=== PATIENT | female | born 1945 | race Caucasian/White ===

== ENCOUNTER 2020-06-23 08:02 | Outpatient (REF) | payer MEDICARE, SELFPAY ==
[2020-06-23 11:07] LABS: Hematocrit 38.1 % (37-47); Hemoglobin 12.4 g/dl (12.0-16.0); Mean Corpuscular HGB Conc 32.5 g/dl (31.0-35.0); Mean Corpuscular Hemoglobin 28.8 pg (27.0-33.0); Mean Corpuscular Volume 88.6 fL (80-98); Mean Platelet Volume 9.3 fL (9.4-12.3); Platelet Count 191 X10*3/uL (160-400); Red Cell Distribution Width 13.7 % (11.0-16.0); White Blood Count 6.6 X10*3/uL (4.8-10.8)
[2020-06-23 11:50] LABS: Vitamin D 25-OH Total 17.6 ng/mL (>30)
[2020-06-23 11:54] LABS: Alanine Aminotransferase 22 U/L (0-31); Albumin Level 4.2 g/dL (3.5-5.0); Alkaline Phosphatase 82 U/L (39-117); Anion Gap 10 (12-20); Aspartate Amino Transferase 16 U/L (5-31); Bilirubin Total 1.1 mg/dL (0.0-1.0); Blood Urea Nitrogen 14 mg/dL (9-16); Carbon Dioxide 29 mmol/L (22-29); Chloride 106 mmol/L (96-108); Cholesterol 221 mg/dL; Estimated Glomerular Filt Rate > 60; Glucose Fasting 94 mg/dL (60-99); HDL Cholesterol 93 mg/dL; LDL Cholesterol Calculated 114 mg/dl; Sodium 141 mmol/L (135-145); Triglycerides 74 mg/dL
== END 2020-06-23 08:03 | disposition home or self-care (01) ==
LOC: HO.HMGCLDS 08:02
PROVIDERS: PCP Internal Medicine; Visit Provider Internal Medicine
DX: I10 Essential (primary) hypertension (principal); E78.2 Mixed hyperlipidemia; K58.9 Irritable bowel syndrome, unspecified
CPT/HCPCS: 36415; 80053; 80061; 82306; 85027

== ENCOUNTER 2020-09-27 07:42 | Day surgery (SDC) | payer MEDICARE, SELFPAY ==
[2020-09-21 13:46] VITALS: BMI 27.2
--- NOTE | 2020-09-26 08:41 | P.CONAN_ITS ---
Documented by User: Krystal Suggs 09/26/20 08:42 HPI - Anesthesia Eval Consult details Narrative: 75yo F for Colonoscopy PMFSH Active Problems Active Problems: All Active Problems (Updated 09/21/20 @ 12:09 by Elizabeth Denson) Hypertension (Acute) Hyperlipidemia (Acute) Medial meniscus tear (Acute) Anxiety (Acute) Past Medical History Medical History Anxiety History of mammogram HTN (hypertension) Hyperlipidemia IBS (irritable bowel syndrome) Medial meniscus tear Osteoarthritis Osteopenia PMR (polymyalgia rheumatica) Family History Family History Father Cancer of prostate Mother CAD (coronary artery disease) CHF (congestive heart failure) Hx of CABG Surgical History Surgical History H/O colonoscopy History of carpal tunnel release Hx of cholecystectomy Hx of hysterectomy S/P lumbar spinal fusion Social History Social History Alcohol intake: current Alcohol intake frequency: holidays/special occasions only Smoking Status: Unknown if ever smoked Advance Directives Information Provided: No Meds Allergies Allergy/AdvReac Type Severity Reaction Status Date / Time atorvastatin [Lipitor] Allergy Intermediate myalgia Verified 09/27/20 07:49 celecoxib [From CELEBREX] Allergy Intermediate ITCHING, Verified 09/27/20 07:49 RASH rosuvastatin [Crestor] Allergy Intermediate myalagia Verified 09/27/20 07:49 codeine [Codeine] Allergy Mild ITCHING, Verified 09/27/20 07:49 itchy morphine [Morphine] Allergy Mild ITCHING, Verified 09/27/20 07:49 itchy meperidine [Demerol] Allergy Unknown unknown Verified 09/27/20 07:49 Home Medications Medication Instructions Recorded Confirmed Last Taken Type aspirin 81 mg tablet,delayed 81 mg PO DAILY 04/25/20 09/21/20 Unknown History release coenzyme Q10 200 mg capsule 200 mg PO DAILY 04/25/20 09/21/20 Unknown History furosemide 20 mg tablet 20 mg PO DAILY 04/25/20 09/21/20 Unknown History lactobacillus combination no.8 1 cap PO DAILY 04/25/20 09/21/20 Unknown History melatonin 10 mg capsule 20 mg PO DAILY 04/25/20 09/21/20 Unknown History rosuvastatin 5 mg tablet 5 mg PO DAILY 04/25/20 09/21/20 Unknown History flu vacc (65yr ml IM 06/10/20 06/30/20 Unknown History up)-MF59C(PF) 60 mcg(15 mcgx4)/0.5 mL IM syringe Exam Exam Date and Time: September 26, 2020 0841 Height,Weight and Vital Signs: Height 5 ft 5.25 in Weight 74.843 kg Narrative Narrative: EKG 04/2020 [address]R [address] and T wave abn No change from 2007 Assessment and Plan Assessment Anesthesia Assessment: Chart Reviewed Documented by User: Angelic Jimenez 09/27/20 08:40 [facility] Past Medical History Medical History Anxiety History of mammogram HTN (hypertension) Hyperlipidemia IBS (irritable bowel syndrome) Medial meniscus tear Osteoarthritis Osteopenia PMR (polymyalgia rheumatica) Family History Family History Father Cancer of prostate Mother CAD (coronary artery disease) CHF (congestive heart failure) Hx of CABG Family history of problems with anesthesia: No Surgical History Surgical History H/O colonoscopy History of carpal tunnel release Hx of cholecystectomy Hx of hysterectomy S/P lumbar spinal fusion History of Problems with Anesthesia: No Social History Social History Alcohol intake: current Alcohol intake frequency: holidays/special occasions only Smoking Status: Unknown if ever smoked Advance Directives Information Provided: No Meds Allergies Allergy/AdvReac Type Severity Reaction Status Date / Time atorvastatin [Lipitor] Allergy Intermediate myalgia Verified 09/27/20 07:49 celecoxib [From CELEBREX] Allergy Intermediate ITCHING, Verified 09/27/20 07:49 RASH rosuvastatin [Crestor] Allergy Intermediate myalagia Verified 09/27/20 07:49 codeine [Codeine] Allergy Mild ITCHING, Verified 09/27/20 07:49 itchy morphine [Morphine] Allergy Mild ITCHING, Verified 09/27/20 07:49 itchy meperidine [Demerol] Allergy Unknown unknown Verified 09/27/20 07:49 Home Medications Medication Instructions Recorded Confirmed Last Taken Type aspirin 81 mg tablet,delayed 81 mg PO DAILY 04/25/20 09/21/20 Unknown History release coenzyme Q10 200 mg capsule 200 mg PO DAILY 04/25/20 09/21/20 Unknown History furosemide 20 mg tablet 20 mg PO DAILY 04/25/20 09/21/20 Unknown History lactobacillus combination no.8 1 cap PO DAILY 04/25/20 09/21/20 Unknown History melatonin 10 mg capsule 20 mg PO DAILY 04/25/20 09/21/20 Unknown History rosuvastatin 5 mg tablet 5 mg PO DAILY 04/25/20 09/21/20 Unknown History flu vacc (65yr ml IM 06/10/20 06/30/20 Unknown History up)-MF59C(PF) 60 mcg(15 mcgx4)/0.5 mL IM syringe Exam Height,Weight and Vital Signs: Vital Signs Temp Pulse Resp BP Pulse Ox 09/27/20 07:54 97.8 F 72 16 146/73 H 96 Airway Mallampati Class: II TM Dist: >3cm Neck ROM: Full Heart: RRR Lungs: CTAB Assessment and Plan Assessment Anesthesia Assessment: Anesthesia Plan Discussed and Chart Reviewed Final Anesthetic Review NPO: Yes ASA Class: II Final Preanesthetic Review: No Changes in Pt Med Stat, Meds/Allgs Chart Reviewed, Consent Obtained/Reviewed and Anes Risks/Benef Reviewed Patient Risk: Low Procedure Risk: Low Assessment/Block/Sedation in SS: Assess/Block/Sedation-SS Anesthetic Plan Anesthetic Plan: MAC: Disposition: Standard PACU
[2020-09-27 07:54] VITALS: BP 146/73; PULSE 72; RESP 16; TEMP 36.6; O2SAT 96
[2020-09-27] MEDS: Lactated Ringers 1,000 ML 100 ML IVCONT (08:12)
--- NOTE | 2020-09-27 08:31 | MHC.SHP ---
Pre-Procedural Eval Section B Chief Complaint: screening Details of Present Illness: see h&p no changes Relevant Family History (Specify if Yes): No Relevant Social History: None Present Medications: see Short Stay Collaborative assessment Medical History: No relevant PMH History of Previous Operations: No relevant previous surgery Allergies: Allergies Allergy/AdvReac Type Severity Reaction Status Date / Time atorvastatin [Lipitor] Allergy Intermediate myalgia Verified 09/27/20 07:49 celecoxib [From CELEBREX] Allergy Intermediate ITCHING, Verified 09/27/20 07:49 RASH rosuvastatin [Crestor] Allergy Intermediate myalagia Verified 09/27/20 07:49 codeine [Codeine] Allergy Mild ITCHING, Verified 09/27/20 07:49 itchy morphine [Morphine] Allergy Mild ITCHING, Verified 09/27/20 07:49 itchy meperidine [Demerol] Allergy Unknown unknown Verified 09/27/20 07:49 Review of Systems Sugical H&P ROS: Negative: Constitution, Cardiovascular, Respiratory, Neurological, Psychiatric, Hem-Onc, Allergic/Immunologic, Gastrointestinal, Genitourinary, Musculoskeletal, Integumentary, Endocrine and Eyes/Ears/Nose/Throat Exam Surgical H&P Exam: Normal: HEENT, Normal: Heart, Normal: Lungs, Normal: Extremities, Normal: Abdomen, Normal: Skin and Normal: Neurological Plan Diagnosis/Plan: Unchanged I have reviewed the history and physical and performed a pertinent physical examination on my patient. No changes have occurred unless specified.
--- NOTE | 2020-09-27 08:53 | PM.OP ---
Brief Operative Note Date of Service: 09/27/20 Pre-op diagnosis: screening Post-op diagnosis: same (colon polyp) Procedure: colonoscopy Surgeon: Jose Gallagher Anesthesia: MAC Was an [employer] used for this Procedure?: No Estimated blood loss (mL): 0 Pathology: other (polyp x1) Condition: stable Disposition: PACU
[2020-09-27 08:57] VITALS: BP 112/58; PULSE 67; RESP 14; TEMP 36.9; O2SAT 96
--- NOTE | 2020-09-27 19:49 | OP_ITS ---
SURGEON: Jose Gallagher MD INDICATIONS: Colon cancer screening. PREOPERATIVE DIAGNOSIS: POSTOPERATIVE DIAGNOSIS: PROCEDURE PERFORMED: Colonoscopy to the terminal ileum with snare polypectomy. ESTIMATED BLOOD LOSS: COMPLICATIONS: ANESTHESIA: ASSISTANTS: SPECIMENS: MEDICATIONS: Monitored anesthesia care. PROCEDURE DESCRIPTION: History and physical performed. The risks and benefits of the procedure were explained to the patient, and informed consent was obtained. The patient was placed in the left lateral decubitus position. A digital rectal exam was performed and was found to be normal. The Olympus pediatric video colonoscope was introduced into the rectum and advanced to the cecum without difficulty. The cecum was identified by transillumination, palpation, and identification of ileocecal valve. Examination was performed, and the scope was removed. She tolerated the procedure well and was returned to recovery area in stable condition. FINDINGS: The terminal ileum was examined and appeared normal. The visualized colonic mucosa was normal. The quality of prep was good with some residual stool in the sigmoid. This was washed and suctioned. No mass lesions were seen. There was a single 6 mm polyp at 50 cm that was removed with a snare and recovered via suction. No other polyps were identified. There was mild sigmoid diverticulosis with scattered diverticulosis in the remainder of the colon. Retroflexed examination was normal. IMPRESSION: Colon polyp. RECOMMENDATION: Follow up the biopsy results. MD FAM Wong/MODL / [id number]
== END 2020-09-27 09:37 | disposition home or self-care (01) ==
PROVIDERS: PCP Internal Medicine; Visit Provider Internal Medicine Gastroenterology
PROC: 0DJD8ZZ Inspection of Lower Intestinal Tract, Via Natural or Artificial Opening Endoscopic (ICD-10-PCS; CPT 45378; principal; 2020-09-27 08:50)
DX: Z12.11 Encounter for screening for malignant neoplasm of colon (principal); K63.5 Polyp of colon; K57.30 Diverticulosis of large intestine without perforation or abscess without bleeding; K58.0 Irritable bowel syndrome with diarrhea; I10 Essential (primary) hypertension; M35.3 Polymyalgia rheumatica; Z90.49 Acquired absence of other specified parts of digestive tract; Z79.899 Other long term (current) drug therapy; Z79.82 Long term (current) use of aspirin; Z88.8 Allergy status to other drugs, medicaments and biological substances
CPT/HCPCS: 45385; 88305

== ENCOUNTER 2020-11-16 11:55 | Outpatient (REF) | payer MEDICARE, SELFPAY ==
[2020-11-16 13:15] LABS: Hematocrit 38.6 % (37-47); Hemoglobin 12.4 g/dl (12.0-16.0); Mean Corpuscular HGB Conc 32.1 g/dl (31.0-35.0); Mean Corpuscular Hemoglobin 28.6 pg (27.0-33.0); Mean Corpuscular Volume 89.1 fL (80-98); Mean Platelet Volume 9.3 fL (9.4-12.3); Platelet Count 203 X10*3/uL (160-400); Red Blood Count 4.33 X10*6/uL (4.20-5.50); Red Cell Distribution Width 13.2 % (11.0-16.0); White Blood Count 6.9 X10*3/uL (4.8-10.8)
[2020-11-16 13:40] LABS: Alanine Aminotransferase 17 U/L (0-31); Albumin Level 4.3 g/dL (3.5-5.0); Alkaline Phosphatase 84 U/L (39-117); Aspartate Amino Transferase 16 U/L (5-31); Bilirubin Direct 0.4 mg/dL (0.0-0.5); Bilirubin Total 1.1 mg/dL (0.0-1.0); Blood Urea Nitrogen 11 mg/dL (9-16); Estimated Glomerular Filt Rate > 60; Lipase 25 U/L (8-78); Total Protein 6.5 g/dL (6.5-8.0)
== END 2020-11-16 11:56 | disposition home or self-care (01) ==
LOC: HO.LAB 11:55
PROVIDERS: PCP Internal Medicine; Visit Provider Internal Medicine Gastroenterology
DX: R10.13 Epigastric pain (principal)
CPT/HCPCS: 36415; 80076; 82565; 83690; 84520; 85027

== ENCOUNTER 2020-11-22 09:21 | Outpatient (REF) | payer MEDICARE, SELFPAY ==
--- NOTE | ~2020-11-22 | CT_ITS ---
EXAMINATION: CT ABDOMEN AND PELVIS WITH CONTRAST CLINICAL INFORMATION: Epigastric pain COMPARISON: Previous CT of the abdomen and pelvis most recent March 2015 TECHNIQUE: Multidetector volumetric images were obtained from the superior aspect of the liver through the pubic symphysis following administration 85 mL of Omnipaque 350 intravenous contrast. Sagittal and coronal reformatted images were obtained on the technologist's workstation. Oral contrast: Yes This CT examination was performed using dose optimization techniques as appropriate, variously including the following: *Automated exposure control *Adjustment of mA and/or kV according to patient size (this includes techniques or standardized protocols for targeted exams where dose is matched to indication/reason for exam; i.e. extremities or head) *Use of iterative reconstruction technique DLP: 398 mGy-cm FINDINGS: LUNG BASES: The visualized lung bases are unremarkable. LIVER, GALLBLADDER, AND BILIARY TREE: The liver is slightly low in attenuation just above mild fatty lesions. There is a 6 x 10 mm low-attenuation lesion in the inferior right lobe axial image 24 series 3 that is stable. No biliary ductal dilatation is present. The gallbladder has been removed. PANCREAS: Unremarkable. SPLEEN: Unremarkable. ADRENAL GLANDS: Unremarkable. KIDNEYS AND URETERS: There are bilateral renal cysts. Kidneys are otherwise unremarkable. BLADDER: Unremarkable. GASTROINTESTINAL TRACT: There is diverticulosis of the colon. No evidence of diverticulitis is seen. The small and large bowel are otherwise unremarkable. The appendix is unremarkable. ABDOMINAL WALL: No significant hernia is appreciated. LYMPH NODES: Normal. VASCULAR: Unremarkable. PELVIC VISCERA: The uterus is been removed. No pelvic mass is seen. OSSEOUS STRUCTURES: There is posterior fusion hardware with rods and reticular screws at L4-L5 and S1. There is mild 4 mm retrolisthesis of L2 with respect to L3. There is mild curvature of the lower lumbar sacral spine to the right. There is multilevel degenerative disc disease. CT/CT abdomen pelvis w con IMPRESSION: Diverticulosis. No evidence of diverticulitis. Bilateral renal cysts. Mild fatty infiltration of the liver and stable small liver lesion.
[2020-11-22] MEDS: iohexoL 350 MG/ML 100 ML INFUS..BTL IV (10:30)
== END 2020-11-22 09:22 | disposition home or self-care (01) ==
LOC: HO.CT 09:21
PROVIDERS: Visit Provider Internal Medicine Gastroenterology
DX: R10.13 Epigastric pain (principal)
CPT/HCPCS: 74177; Q9967

== ENCOUNTER 2021-02-21 08:09 | Outpatient (REF) | payer MEDICARE, SELFPAY ==
[2021-02-21 12:18] LABS: Alanine Aminotransferase 26 U/L (0-31); Albumin Level 4.3 g/dL (3.5-5.0); Alkaline Phosphatase 88 U/L (39-117); Anion Gap 12 (12-20); Aspartate Amino Transferase 21 U/L (5-31); Bilirubin Total 0.9 mg/dL (0.0-1.0); Blood Urea Nitrogen 20 mg/dL (9-16); Calcium 9.8 mg/dL (8.4-10.2); Carbon Dioxide 25 mmol/L (22-29); Chloride 107 mmol/L (96-108); Cholesterol 240 mg/dL; Estimated Glomerular Filt Rate > 60; Glucose Fasting 117 mg/dL (60-99); HDL Cholesterol 84 mg/dL; LDL Cholesterol Calculated 118 mg/dl; Potassium 4.4 mmol/L (3.3-5.1); Sodium 140 mmol/L (135-145); Total Protein 6.4 g/dL (6.5-8.0); Triglycerides 190 mg/dL
== END 2021-02-21 08:10 | disposition home or self-care (01) ==
LOC: HO.HMGCLDS 08:09
PROVIDERS: PCP Internal Medicine; Visit Provider Internal Medicine
DX: E78.5 Hyperlipidemia, unspecified (principal); F41.9 Anxiety disorder, unspecified; I10 Essential (primary) hypertension
CPT/HCPCS: 36415; 80053; 80061; 82306

== ENCOUNTER 2021-04-07 10:19 | Outpatient (REF) | payer MEDICARE, SELFPAY ==
--- NOTE | ~2021-04-07 | MM_ITS ---
EXAMINATION: BONE DENSITOMETRY CLINICAL INDICATION: Asymptomatic menopausal state. COMPARISON: This is the patient's baseline examination. TECHNIQUE: Using a First [employer] DXA System (software version: 13.1) manufactured by [employer], dual-energy x-ray absorptiometry was performed of the left hip and left forearm radius 33%. The images are of good technical quality. Summary results are attached. FINDINGS: LEFT FEMUR, NECK: BMD 0.818 g/cm2, Z-score 0.1, T-score -1.6, osteopenia. LEFT FEMUR, TOTAL: BMD 0.845 g/cm2, Z-score 0.2, T-score -1.3, osteopenia. LEFT FOREARM RADIUS 33%: BMD 0.805 g/cm2, Z-score 1.4, T-score -0.8, normal. IDENTIFIED RISK FACTORS: Height loss, anticonvulsants, glucocorticoids (chronic), thiazide, menopause, bilateral oophorectomy. HISTORY OF FRACTURE: Hand. MEDICATIONS: None listed. MM/XR DEXA axial skeleton IMPRESSION: 1. DIAGNOSIS: Osteopenia based on the lowest T-score value of -1.6 in the femoral neck applying World Health Organization criteria. 2. 10-YEAR FRACTURE RISK PREDICTION, FRAX: Major osteoporotic fracture (clinical spine, forearm, hip or shoulder) 17.7%. Hip fracture 4.2%. 3. Treatment Recommendations: NOF guidelines recommend consideration for treatment in postmenopausal women and men age 50 and older presenting with the following: -A hip or vertebral (clinical or morphometric) fracture. -T-score less than or equal to -2.5 at the femoral neck or spine after appropriate evaluation to exclude secondary causes. -Low bone mass at the hip or spine and a 10-year fracture probability by FRAX of greater than or equal to 3% for hip fracture or greater than or equal to 20% for major osteoporotic fracture based on the [place] adapted WHO algorithm. 4. Other Recommendations: All treatment decisions require clinical judgment and consideration of individual patient factors, including patient preferences, comorbidities, previous drug use, risk factors not captured in the FRAX model (e.g. frailty, falls, vitamin D deficiency, increased bone turnover, interval significant decline in bone density) and possible under or overestimation of fracture risk by FRAX. Additional medical evaluation for secondary cause of low bone mineral density may be appropriate. FUTURE SCAN RECOMMENDATION: People with diagnosed cases of osteoporosis or at high risk for fracture should have regular bone mineral density tests. For patients eligible for Medicare, routine testing is allowed once every 2 years. The testing frequency can be increased to one year for patients who have rapidly progressing disease, those who are receiving or discontinuing medical therapy to restore bone mass, or have additional risk factors.
== END 2021-04-07 10:20 | disposition home or self-care (01) ==
LOC: HO.MAMMO 10:19
PROVIDERS: Visit Provider Internal Medicine
DX: Z13.820 Encounter for screening for osteoporosis (principal); Z78.0 Asymptomatic menopausal state
CPT/HCPCS: 77080; 77081

== ENCOUNTER 2021-07-04 16:34 | Outpatient (REF) | payer MEDICARE, SELFPAY | END 2021-07-04 16:35 | disposition home or self-care (01) | LOC: HO.LNP 16:34 | PROVIDERS: Visit Provider Internal Medicine | DX: R21 Rash and other nonspecific skin eruption (principal) | CPT/HCPCS: 87255 ==

== ENCOUNTER 2021-08-23 08:13 | Outpatient (REF) | payer MEDICARE, SELFPAY ==
[2021-08-23 11:23] LABS: MANUAL DIFF FLAG NO
[2021-08-23 11:32] LABS: Basophils Percent Auto 0.7 % (0-2); Eosinophils Absolute Auto 0.3 X10*3/uL (0.0-0.4); Eosinophils Percent Auto 4.5 % (0-4); Hematocrit 38.4 % (37.0-47.0); Hemoglobin 12.1 g/dl (12.0-16.0); Imm Gran Abs Auto 0.02 X10*3/uL (0.00-0.03); Imm Gran Pct Auto 0.4 % (0.0-0.4); Lymphocytes Absolute Auto 2.4 X10*3/uL (1.2-4.9); Lymphocytes Percent Auto 42.5 % (20-40); Mean Corpuscular HGB Conc 31.5 g/dl (31.0-35.0); Mean Corpuscular Hemoglobin 28.3 pg (27.0-33.0); Mean Corpuscular Volume 89.9 fL (80.0-98.0); Mean Platelet Volume 9.5 fL (9.4-12.3); Monocytes Absolute Auto 0.4 X10*3/uL (0.1-1.2); Monocytes Percent Auto 7.7 % (2-11); Neutrophils Absolute Auto 2.5 x10*3/uL (2.0-8.3); Neutrophils Percent Auto 44.2 % (45-73); Platelet Count 238 X10*3/uL (160-400); Red Blood Count 4.27 X10*6/uL (4.20-5.50); Red Cell Distribution Width 13.7 % (11.0-16.0); White Blood Count 5.6 X10*3/uL (4.8-10.8)
[2021-08-23 11:53] LABS: Estimated Average Glucose 103 mg/dL; Hemoglobin A1c % 5.2 %
[2021-08-23 12:04] LABS: TSH reflex Free T4 1.63 uIU/mL (0.32-4.0)
[2021-08-23 12:05] LABS: Alanine Aminotransferase 24 U/L (0-31); Albumin Level 4.3 g/dL (3.5-5.0); Alkaline Phosphatase 98 U/L (39-117); Anion Gap 10 (12-20); Aspartate Amino Transferase 17 U/L (5-31); Bilirubin Total 1.3 mg/dL (0.0-1.0); Blood Urea Nitrogen 13 mg/dL (9-16); Calcium 9.9 mg/dL (8.4-10.2); Carbon Dioxide 29 mmol/L (22-29); Chloride 105 mmol/L (96-108); Cholesterol 234 mg/dL; Estimated Glomerular Filt Rate > 60; Glucose Fasting 105 mg/dL (60-99); HDL Cholesterol 90 mg/dL; LDL Cholesterol Calculated 100 mg/dl; Potassium 3.8 mmol/L (3.3-5.1); Sodium 140 mmol/L (135-145); Total Protein 6.6 g/dL (6.5-8.0); Triglycerides 223 mg/dL
== END 2021-08-23 08:14 | disposition home or self-care (01) ==
LOC: HO.HMGCLDS 08:13
PROVIDERS: PCP Internal Medicine; Visit Provider Internal Medicine
DX: Z00.00 Encounter for general adult medical examination without abnormal findings (principal); E78.5 Hyperlipidemia, unspecified; I10 Essential (primary) hypertension
CPT/HCPCS: 36415; 80053; 80061; 83036; 84443; 85025

== ENCOUNTER 2022-03-07 07:26 | Emergency (ER) | payer MEDICARE, SELFPAY ==
--- NOTE | ~2022-03-07 | MR_ITS ---
EXAMINATION: MR ABDOMEN WITHOUT CONTRAST/MRCP CLINICAL INFORMATION: Epigastric abdominal pain, nausea, vomiting, abnormal LFTs. Rule out stone. COMPARISON: Right upper quadrant ultrasound dated 2021. CT scan of the abdomen and pelvis dated 03/07/2022 and 09/16/2013. TECHNIQUE: An MRI scan of the abdomen was performed using multiple imaging sequences and imaging planes. As per the MRCP protocol, heavily T2-weighted 3-D high-resolution MRCP sequences were obtained in the coronal plane along with thin and thick slab coronal images and coronal MIP reconstructions the technologist workstation under concurrent physician supervision. FINDINGS: LIVER: The liver is normal in size and signal. No hepatic steatosis is seen. There is a 0.9 cm circumscribed T2 bright mass along the inferior periphery of hepatic segment 6, incompletely characterize given the lack of intravenous contrast, but unchanged dating back to prior CT scan of the abdomen from 09/16/2013, consistent with a benign cyst. No further imaging follow-up is recommended. GALLBLADDER/BILIARY TREE: The gallbladder is. Mild intra-hepatic ductal dilatation is seen. Common bile duct is dilated, measuring 0.9 cm proximally and 1 cm distally. The degree of extrahepatic biliary dilatation is progressive compared to 09/16/2013, where largest diameter of 0.7 cm was seen. Findings may be related to progressive extrahepatic biliary dilatation status post cholecystectomy and age. No obstructing stone or mass is seen. PANCREAS: The pancreas is normal in appearance. Anatomic variant of pancreas divisum is seen with persistent duct of Santorini noted draining through the accessory papilla. No ductal dilatation, mass or surrounding stranding is seen. SPLEEN: Normal size and appearance. ADRENAL GLANDS AND KIDNEYS: Adrenal glands normal. Kidneys bilaterally symmetric in size. Several bilateral thin-walled T2 bright renal masses are seen, consistent with cysts, largest of which is an exophytic lower pole right renal 6.7 cm cyst. No specific imaging follow-up is recommended for renal cysts. No suspicious focal mass, hydronephrosis, or perinephric stranding. BOWEL LOOPS: Scattered colonic diverticulosis is seen with no evidence of acute diverticulitis. Small bowel loops are decompressed and grossly unremarkable. LYMPHOVASCULAR STRUCTURES: Abdominal aorta normal in caliber. No periaortic collections. No abdominal adenopathy or free fluid collection. BONES: S-shaped thoracolumbar scoliosis and multilevel degenerative disc disease is noted. There is evidence of posterior spinal decompression and fusion at the L4-S1 levels with associated prominent dephasing artifact, limiting assessment. MR/MR MRCP IMPRESSION: 1. Mild intra-hepatic and extrahepatic biliary ductal dilatation is seen, progressive compared to 09/16/2013. Findings may be related to progressive extrahepatic biliary dilatation status post cholecystectomy and age. No obstructing stone or mass is seen. 2. Anatomic variant of pancreas divisum. 3. Bilateral benign-appearing renal cysts. No specific imaging follow-up is recommended. 4. Colonic diverticulosis.
--- NOTE | ~2022-03-07 | US_ITS ---
EXAMINATION: US ABDOMEN LIMITED CLINICAL INFORMATION: Right upper quadrant and epigastric pain with nausea. COMPARISON: CT scan of the abdomen and pelvis performed today. TECHNIQUE: Real-time imaging of the right upper quadrant abdominal viscera. FINDINGS: PANCREAS: Visualized portions unremarkable. LIVER: Homogeneous echotexture. Tiny anechoic cyst in the right lobe measures 1.1 cm. GALLBLADDER: Status post cholecystectomy. COMMON BILE DUCT: 0.9 cm proximally and 0.7 cm distally without intraluminal abnormality. RIGHT KIDNEY: 10.7 cm. Anechoic interpolar cyst measures 7.4 cm. No hydronephrosis or nephrolithiasis. FREE FLUID: None. US/US abdomen limited IMPRESSION: 1. No acute abnormality. 2. Right renal cyst demonstrating benign features correlating with CT findings, not requiring follow-up.
--- NOTE | ~2022-03-07 | CT_ITS ---
EXAMINATION: CT ABDOMEN AND PELVIS WITH CONTRAST CLINICAL INFORMATION: Epigastric/periumbilical abdominal pain. Nausea. COMPARISON: 11/22/2020 TECHNIQUE: Multidetector volumetric images were obtained from the superior aspect of the liver through the pubic symphysis following administration 85 mL of Omnipaque 350 intravenous contrast. Sagittal and coronal reformatted images were obtained on the technologist's workstation. Oral contrast: No This CT examination was performed using dose optimization techniques as appropriate, variously including the following: *Automated exposure control *Adjustment of mA and/or kV according to patient size (this includes techniques or standardized protocols for targeted exams where dose is matched to indication/reason for exam; i.e. extremities or head) *Use of iterative reconstruction technique DLP: 520 mGy-cm FINDINGS: LUNG BASES: The visualized lung bases are unremarkable. LIVER, GALLBLADDER, AND BILIARY TREE: The liver is normal in size, shape, and attenuation. No focal hepatic lesion. Cholecystectomy. Mild intrahepatic and extrahepatic biliary ductal dilatation. No ductal filling defect. PANCREAS: Unremarkable. SPLEEN: Unremarkable. ADRENAL GLANDS: Unremarkable. KIDNEYS AND URETERS: The kidneys are normal in size, shape, and attenuation. No hydronephrosis, hydroureter, or calculi seen. No perinephric stranding. Simple appearing bilateral renal cysts. No specific follow-up recommended. BLADDER: Unremarkable. GASTROINTESTINAL TRACT: The stomach is unremarkable. Normal caliber small bowel. No obstruction. No colonic wall thickening or acute inflammation. Normal appendix. Colonic diverticulosis without evidence of diverticulitis. This is greatest throughout the left hemicolon. ABDOMINAL WALL: No significant abdominal wall hernia seen. LYMPH NODES: Normal. VASCULAR: Unremarkable. PELVIC VISCERA: Uterus is not seen. No adnexal mass. OSSEOUS STRUCTURES: Posterior fusion hardware from L4 through S1. Degenerative change throughout the spine. No acute or suspicious osseous abnormality. CT/CT abdomen pelvis w IV con IMPRESSION: 1. No acute findings in the abdomen or pelvis. No inflammatory changes. 2. There is mild intrahepatic and extrahepatic biliary ductal dilatation status post cholecystectomy. This is mildly increased from prior. No ductal filling defect seen. Fleischner guidelines were followed.
--- NOTE | 2022-03-07 07:28 | ECG_ITS ---
Test Reason : chest pain Blood Pressure : / mmHG Vent. Rate : 064 BPM Atrial Rate : 064 BPM P-R Int : 140 ms QRS Dur : 080 ms QT Int : 452 ms P-R-T Axes : 055 001 020 degrees QTc Int : 466 ms Normal sinus rhythm Nonspecific ST and T wave abnormality Abnormal ECG When compared with ECG of 14-JUL-2007 10:19, No significant changes seen Referred By: Generic ED Physician Electronically Signed By:HAFSA PRASAD MD
[2022-03-07 07:40] VITALS: BP 137/77; PULSE 65; RESP 16; TEMP 36.2; O2SAT 97; BMI 26.1
[2022-03-07 09:36] LABS: MANUAL DIFF FLAG NO
[2022-03-07 09:38] LABS: Basophils Percent Auto 0.4 % (0-2); Eosinophils Absolute Auto 0.1 X10*3/uL (0.0-0.4); Eosinophils Percent Auto 1.8 % (0-4); Hematocrit 38.4 % (37.0-47.0); Hemoglobin 12.9 g/dl (12.0-16.0); Imm Gran Abs Auto 0.03 X10*3/uL (0.00-0.03); Imm Gran Pct Auto 0.4 % (0.0-0.4); Lymphocytes Absolute Auto 1.6 X10*3/uL (1.2-4.9); Lymphocytes Percent Auto 20.7 % (20-40); Mean Corpuscular HGB Conc 33.6 g/dl (31.0-35.0); Mean Corpuscular Hemoglobin 30.6 pg (27.0-33.0); Mean Corpuscular Volume 91.2 fL (80.0-98.0); Monocytes Absolute Auto 0.5 X10*3/uL (0.1-1.2); Neutrophils Absolute Auto 5.4 x10*3/uL (2.0-8.3); Neutrophils Percent Auto 69.7 % (45-73); Platelet Count 219 X10*3/uL (160-400); Red Blood Count 4.21 X10*6/uL (4.20-5.50); Red Cell Distribution Width 13.9 % (11.0-16.0); White Blood Count 7.7 X10*3/uL (4.8-10.8)
[2022-03-07 09:39] LABS: Appearance Urine Clear; Color Urine Yellow; Glucose Urine UA Negative (Negative); Leukocyte Esterase Urine Negative (Negative); Nitrite Urine Negative (Negative); Urine Blood Negative (Negative); Urine Ketones Negative (Negative); Urine Protein Negative (Neg-Trace)
[2022-03-07] MEDS: 0.9 % Sodium Chloride 1,000 ML 999 ML IV (09:45)
[2022-03-07] MEDS: Magnesium Hydrox/Alum Hydrox 30 ML ORAL.SUSP PO (09:51)
[2022-03-07] MEDS: Famotidine/PF 20 MG/2 ML VIAL IVPUSH (09:51)
[2022-03-07] MEDS: ondansetron HCL 4 MG/2 ML VIAL IVPUSH (09:51)
--- OUTSIDE RECORDS SUMMARY | 2022-03-07 09:59 | XMS_ITS | Continuity of Care Document ---
:1945 Author Organization [facility] Address [address] [place] [id number]- Care Team Providers Name Role Phone Charu Santos MD Primary Care Physician Encounter [facility] [place](s): 06/19/21 - 06/20/[address] [id number] Discharge Disposition: A-Transfer VNA/Home Health Attending Physician: Hugh Michele MD Admitting Physician: Hugh Michele MD Referring Physician: Hugh Michele MD Allergies, Adverse Reactions, Alerts Substance Reaction Severity Status codeine itching Active morphine itching Active Demerol HCl itching Active CeleBREX rash Active Medications acetaminophen 325 mg oral tablet 650 mg, By Mouth, Every 6 hours, May take OTC not to exceed 3000 mg/day, Refills 0, Maintenance, 06/20/21 7:47:00 EST, Partial fill upon patient request if the prescription is for a schedule II opioid drug. Start Date: 06/20/21 Status: OrderedAcetaminophen Tablet 650 mg, Tablet, By Mouth, 06/20/21 14:00:00 EST Start Date: 06/20/21 Stop Date: 06/20/21 Status: CompletedamLODIPine 5 mg oral tablet 5 mg, 1, tablet, By Mouth, Daily, # 30 tablet, Refills 0, Maintenance, 04/14/21 11:14:00 EST, Partial fill upon patient request if the prescription is for a schedule II opioid drug. Start Date: 04/14/21 Status: OrderedAspirin Tablet 325 mg, By Mouth, 2 times a day, Refills 0, Maintenance, 06/20/21 7:47:00 EST, Partial fill upon patient request if the prescription is for a schedule II opioid drug. Start Date: 06/20/21 Status: Orderedcitalopram 10 mg oral tablet 10 mg, 1, tablet, By Mouth, Daily, # 30 tablet, Refills 0, Maintenance, 04/14/21 11:14:00 EST, Partial fill upon patient request if the prescription is for a schedule II opioid drug. Start Date: 04/14/21 Status: OrderedColace Capsule 100 mg, 1, capsule, By Mouth, 2 times a day, Refills 0, Maintenance, 06/20/21 7:47:00 EST, Partial fill upon patient request if the prescription is for a schedule II opioid drug. Start Date: 06/20/21 Status: OrderedCrestor 5 mg oral tablet 1 tablet = 5 mg, By Mouth, Daily, # 30 tablet, 0 Refills, Maintenance, 04/14/21 11:14:00 EST, Tablet, Partial fill upon patient request if the prescription is for a schedule II opioid drug. Start Date: 04/14/21 Status: OrderedDilaudid Tablet 4 mg, Tablet, By Mouth, Every 4 hours, PRN for Pain , Severe, Routine, 06/19/21 13:23:00 EST Start Date: 06/19/21 Stop Date: 06/26/21 Status: Orderedesomeprazole 40 mg oral enteric coated capsule 1 capsule = 40 mg, By Mouth, Daily, # 30 capsule, 0 Refills, Maintenance, 04/14/21 11:15:00 EST, EC Capsule, Partial fill upon patient request if the prescription is for a schedule II opioid drug. Start Date: 04/14/21 Status: Orderedfurosemide 20 mg oral tablet 1, capsule, By Mouth, Daily, # 1 tablet, Refills 0, Maintenance, 04/14/21 11:14:00 EST, Partial fillupon patient request if the prescription is for a schedule II opioid drug. Start Date: 04/14/21 Status: Orderedgabapentin 600 mg oral tablet 1 tablet = 600 mg, By Mouth, Daily, # 270 tablet, 0 Refills, Maintenance, 04/14/21 11:13:00 EST, Tablet, Partial fill upon patient request if the prescription is for a schedule II opioid drug. Start Date: 04/14/21 Status: OrderedHYDROmorphone 2 mg oral tablet See Instructions, PRN Pain , Severe, Take 1-2 tablets By Mouth Every 4 hours, # 84 tablet, 0 Refills, Acute 06/27/21 7:42:00 EST, 06/20/21 7:42:00 EST, Tablet, [facility], Partial fill upon patient request if the prescription is for a sc... Start Date: 06/20/21 Stop Date: 06/27/21 Status: Orderedmelatonin 5 mg oral tablet 1 tablet = 5 mg, By Mouth, Daily at bedtime, Start 1 tablet by mouth at bedtime, increase weekly as needed to 3 tablet by mouth at bedtime, 0 Refills, Maintenance, 04/14/21 11:14:00 EST, Partial fill upon patient request if the prescription is for a s... Start Date: 04/14/21 Status: Orderedmeloxicam 15 mg oral tablet 1 tablet = 15 mg, By Mouth, Daily, # 30 tablet, 0 Refills, Maintenance, 06/20/21 7:48:00 EST, Tablet, Partial fill upon patient request if the prescription is for a schedule II opioid drug. Start Date: 06/20/21 Status: OrderedMiraLax Powder 1 pack/packet = 17 Gm, By Mouth, Daily, PRN Constipation, 0 Refills, Maintenance, 06/20/21 7:47:00 EST, Powder, Partial fill upon patient request if the prescription is for a schedule II opioid drug. Start Date: 06/20/21 Status: Orderedsenna 187 mg oral tablet 1 tablet = 8.6 mg, By Mouth, Daily at bedtime, PRN as needed for constipation, 0 Refills, Maintenance, 06/20/21 7:47:00 EST, Tablet, Partial fill upon patient request if the prescription is for a schedule II opioid drug. Start Date: 06/20/21 Status: OrderedtraMADol 50 mg oral tablet 1 tablet = 50 mg, By Mouth, Every 4 hours, PRN Pain , Mild, for 7 days, not to exceed 400 mg/day, # 42 tablet, 0 Refills, Acute 06/27/21 7:41:00 EST, 06/20/21 7:41:00 EST, Tablet, [facility], Partial fill upon patient request if the pres... Start Date: 06/20/21 Stop Date: 06/27/21 Status: Orderedvalsartan 160 mg oral tablet 160 mg, 1, tablet, By Mouth, Daily, # 30 tablet, Refills 0, Maintenance, 04/14/21 11:13:00 EST, Partial fill upon patient request if the prescription is for a schedule II opioid drug. Start Date: 04/14/21 Status: Ordered Results Radiology Reports Exam Date Time Procedure Performing Provider Status 06/19/21 10:36 PM Knee 1 or 2 Views Left Mary Boston; Auth (V erified) Notes:(Knee 1 or 2 Views Left) Reason For Exam: Postop;PostopRESULT: Knee 1 or 2 Views Left PROCEDURE: Knee 1 or 2 Views Left CLINICAL INDICATION: 76 years old Female, status post total LEFT knee joint replacement. TECHNIQUE: Portable AP view of the LEFT knee obtained. COMPARISONS: LEFT knee MRI December 18, 2018. FINDINGS: Bones and joints: Metallic cemented femoral and tibial components are noted, in good alignment. Lucent patellar component not well seen without a lateral view. Soft Tissues: As expected, there is subcutaneous gas and joint space gas at the knee. IMPRESSION: 1. Status post total knee joint replacement in good alignment on single AP view. Expected postoperative changes. Thank you for allowing me to participate in the care of this patient. WSN: [id number] Ordering Physician: Seun Bucio Dictated By: Ty Ford MD Dictated Date/Time: 06/20/21 0:14 am Reviewed By: Ty Ford MD Signed By: Ty Ford MD Signed Date/Time: 06/20/21 0:14 am Transcribed By: DELANEY Transcribed Date/Time: 06/20/21 0:13 am Vital Signs Most recent to oldest 1 2 3 [Reference Range]: Height 165 cm 165 cm 165 cm (06/20/21 6:56 AM) (06/19/21 3:17 PM) (06/19/21 10: 11 AM) Weight 74.4 kg 74.4 kg (06/19/21 10:11 AM) (06/19/21 8:14 AM) Oxygen Saturation [94-100 %] 97 % 98 % 98 % (06/20/21 6:56 AM) (06/20/21 3:00 AM) (06/19/21 10: 00 PM) Pulse Rate [55-90 bpm] 56 bpm 72 bpm 63 bpm (06/20/21 6:56 AM) (06/20/21 3:00 AM) (06/19/21 10: 00 PM) Body Mass Index [18.5-24.99] 27.33 27.33 *H* *H* (06/19/21 10:11 AM) (06/19/21 8:14 AM) Blood Pressure [90-138/55-84 90/53 mm Hg 112/62 mm Hg 105 /57 mm Hg mm Hg] (06/20/21 6:56 AM) (06/20/21 3:00 AM) (06/19/21 10: 00 PM) Respiratory Rate [16-30 18 br/min 18 br/min 18 br/mi n br/min] (06/20/21 3:41 PM) (06/20/21 3:41 PM) (06/20/21 2:4 1 PM) Temperature [96.8-100.4 DegF] 97.8 DegF 97.6 DegF 97 .6 DegF (06/20/21 6:56 AM) (06/20/21 3:00 AM) (06/19/21 10: 00 PM) Mode of Delivery (Oxygen) Room air Room air Room a ir (06/20/21 6:56 AM) (06/20/21 3:00 AM) (06/19/21 10: 00 PM) Blood pressure sites Arm, right Arm, right Arm, right (06/20/21 6:56 AM) (06/20/21 3:00 AM) (06/19/21 10: 00 PM) Temperature Route Oral Oral Oral (06/20/21 6:56 AM) (06/20/21 3:00 AM) (06/19/21 10: 00 PM) Dry Weight 74.4 kg (06/19/21 8:14 AM) Social History Social History Type Response Smoking Status Never smoker entered on: 03/22/14 Sex
--- OUTSIDE RECORDS SUMMARY | 2022-03-07 09:59 | XMS_ITS ---
:1945 Author Organization [facility] Address [address] [place] [address] Care Team Providers Name Role Phone Jose Gallagher Jr Unavailable Unavailable PROBLEMS Type Condition ICD9-CM Code [id number] Code Onset Condition SNO MED Code Dates Status Problem Colon cancer Z12.11 Active [id number] 04 screening Problem Epigastric pain R10.13 Active 7992 2008 Problem Irritable bowel K58.0 Active 1970 syndrome with diarrhea ALLERGIES Substance Reaction Event Type Date Status Morphine Sulfate Unknown Drug Allergy Aug, Active Demerol Unknown Drug Allergy Aug, Active Celebrex Unknown Drug Allergy Aug, Active Codeine Phosphate Unknown Drug Allergy Aug, Active ENCOUNTERS Encounter Location Date Diagnosis [facility] [address] Jan, Ep igastric pain R10.13 [facility] [address] [place] [address] [facility] [address] Nov, [facility] [address] [place] [address] [facility] [address] Jun, Ep igastric pain R10.13 [facility] [address] [place] [address] [facility] [address] Nov, [facility] [address] [place] [address] [facility] [address] Nov, [facility] [address] [place] [address] [facility] [address] Nov, [facility] [address] [place] [address] [facility] [address] Nov, Ep igastric pain R10.13 [facility] [address] [place] [address] [facility] [address] Oct, [facility] [address] [place] [address] [facility] [address] [place] [address] September, Colon cancer [place] [id number] Z12.11 and Colon polyps K63.5 [facility] [address] Aug, 2020 Ir ritable bowel syndrome [facility] [address] [place] with diarrhea K5 8.0 and [address] Colon cancer scr eening Z12.11 [facility] [address] Aug, [facility] [address] [place] [address] [facility] [address] Jul, Ir ritable bowel syndrome [facility] [address] [place] with diarrhea K5 8.0 [address] [facility] [address] May, [facility] [address] [place] [address] [facility] [address] May, Ir ritable bowel syndrome [facility] [address] [place] with diarrhea K5 8.0 [address] [facility] [address] Jan, [facility] [address] [place] [address] [facility] [address] Jan, 2017 Ir ritable bowel syndrome [facility] [address] [place] with diarrhea K5 8.0 [address] [facility] [address] Jan, Ir ritable bowel syndrome [facility] [address] [place] with diarrhea K5 8.0 [address] [facility] [address] September, [facility] [address] [place] [address] [facility] [address] Jul, [facility] [address] [place] [address] [facility] [address] Jun, Ir ritable bowel syndrome [facility] [address] [place] with diarrhea K5 8.0 [address] [facility] [address] Jun, [facility] [address] [place] [address] [facility] [address] Mar, Ir ritable bowel syndrome [facility] [address] [place] with diarrhea K5 8.0 [address] [facility] [address] Feb, [facility] [address] [place] [address] [facility] [address] September, Ab dominal pain 789.00 [facility] [address] [place] [address] 569.3 [facility] [address] Nov, [place] [id number] [facility] [address] Aug, [place] [id number] [facility] [address] Jul, Mikayla [place] [phone] [facility] [address] Jun, [place] [id number] IMMUNIZATIONS Vaccine Route Administration Date Status Influenza Unknown Feb 17, 2020 Administered Influenza Unknown Mar 18, 2018 Administered SOCIAL HISTORY Never Assessed REASON FOR REFERRAL FUNCTIONAL STATUS PLAN OF CARE Activity Details Follow Up prn Reason: Pending Test BUN Pending Test CREATININE Pending Test LIVER PROFILE Pending Test LIPASE Pending Test CBC w/o DIFF Pending Test CT ABD & PELVIS WITH CONTRAS T Pending Test CT ABD & PELVIS WITH PO CONT ONLY Future/Pending Procedure COLONOSCOPY [id number] VITAL SIGNS Weight 165 lbs 2020-08-17 Weight 163 lbs 2018-05-07 Weight 171 lbs 2017-01-18 Weight 157 lbs 2016-01-13 Weight 158 lbs 2015-07-01 Weight 160 lbs 2015-03-24 Weight 166 lbs 2013-09-11 Height 65.25 in 2020-08-17 Height 65.25 in 2018-05-07 Height 65.25 in 2017-01-18 Height 65.25 in 2016-01-13 Height 65.25 in 2015-07-01 Height 65.25 in 2015-03-24 Height 65.25 in 2013-09-11 BMI 27.24 kg/m2 2020-08-17 BMI 26.91 kg/m2 2018-05-07 BMI 28.24 kg/m2 2017-01-18 BMI 25.92 kg/m2 2016-01-13 BMI 26.09 kg/m2 2015-07-01 BMI 26.42 kg/m2 2015-03-24 BMI 27.41 kg/m2 2013-09-11 Heart Rate 64 /min 2017-01-18 Heart Rate 60 /min 2013-09-11 Temperature 98.1 degrees Fahrenheit 2020-08-17 Blood pressure systolic 000 mm Hg 2020-08-17 Blood pressure diastolic 00 mm Hg 2020-08-17 MEDICATIONS Medication Instructions Dosage Frequency Start End Duration Statu s Date Date immodium Active Dicyclomine HCl Orally 2-4 times 1 tablet Nov, Active 20 MG a day 2021 amLODIPine Orally Once a 1 tablet 24h Active Besylate 5 MG day CoQ-10 100 MG Orally Once a 2 capsule 24h Ac tive day with a meal Gabapentin 300 Orally Once a 1 tablet 24h Ac tive MG day Diovan 160 MG Orally Once a 1 tablet 24h Act lauren day Readi-Cat 2 2.1 as directed Nov, Acti ve % 2020 Probiotic - Orally once a as directed 24h Ac tive day MiraLax (colon orally begin at mixed with Aug, 1 day Active prep) 8.3 ounce 5:00 p.m. the Gatorade or 2020 ((238) grams day before the Crystal procedure Light Citalopram Orally hs 1 tablet Active Hydrobromide 5 Valerian Root 2 capsule Active before bedtime as needed Vitamin B12 100 as directed Acti ve MCG Niacin CR Active Aspirin 81 MG Orally Once a 1 tablet 24h Act lauren day Furosemide 20 mg Oral am 1 tab Active Melatonin ER 10 Orally HS as directed Ac tive MG NexIUM 40 MG Orally Once a 1 capsule 24h Nov, 30 days Act lauren day 2020 Dicyclomine HCl Orally PRN Activ e 20 MG Crestor 5 MG Orally HS 3 1 tablet Active TIMES A WEEK PROCEDURES Procedure Date Ordered Result Body Site PRES/ABSN URINE INCON ASSESS May 07, 2018 PRES/ABSN URINE INCON ASSESS August 17, 2020 BP SCR PRFRM RCMDD DEFIND SCR INTVL May 07, 2018 TEST FOR BLOOD, FECES July 10, 2018 TOBACCO NON-USER May 07, 2018 DOC MEDS VERIFIED W/PT OR RE August 17, 2020 COLORECTAL CA SCREEN DOC REV May 07, 2018 FLU IMMUNIZE ORDER/ADMIN May 07, 2018 LESION REMOVAL COLONOSCOPY September 27, 2020 COLORECTAL CA SCREEN DOC REV August 17, 2020 DOC MEDS VERIFIED W/PT OR RE May 07, 2018 BP NOT ASSESS PATIENT NOT ELIGIBLE August 17, 2020 TOBACCO NON-USER August 17, 2020 BMI >=30 CALCUATE W/FOLLOWUP May 07, 2018 RESULTS Name Result Date Reference Range CT abdomen pelvis w con 2020-11-22 Complete Blood Count no Diff 2020-11-16 White Blood Count 6.9 4.8-10.8 Red Blood Count 4.33 4.20-5.50 Hemoglobin 12.4 12.0-16.0 Hematocrit 38.6 37-47 Mean Corpuscular Volume 89.1 80-98 Mean Corpuscular Hemoglobin 28.6 27.0 -33.0 Mean Corpuscular HGB Conc 32.1 31.0-3 5.0 Red Cell Distribution Width 13.2 11.0 -16.0 Platelet Count 203 160-400 Mean Platelet Volume 9.3 9.4-12.3 NRBC Pct Auto 0.0 0.0-0.2 NRBC Abs Auto 0.000 0.0-0.012 Liver Panel 2020-11-16 Bilirubin Total 1.1 0.0-1.0 Bilirubin Direct 0.4 0.0-0.5 Aspartate Amino Transferase 16 5-31 Alanine Aminotransferase 17 0-31 Total Protein 6.5 6.5-8.0 Albumin Level 4.3 3.5-5.0 Alkaline Phosphatase 84 39-117 Blood Urea Nitrogen 2020-11-16 Blood Urea Nitrogen 11 9-16 Creatinine 2020-11-16 Creatinine 0.74 0.5-1.4 Estimated Glomerular Filt Rate > 60 Lipase 2020-11-16 Lipase 25 8-78 Pathology 2020-09-27 Hemoccult Cards (Screening) Sample 1 NEG Sample 2 NEG Sample 3 NEG ABD PELVIS WO CONT 2013-09-16 REASON FOR VISIT refill , IBS , refill , needs ct scan prep, lab results, abd pain , pathology, IBS , PATIENT PRESENTS TODAY FOR IBS , COVID Screen, IBS , hemoccult cards, Put on 2 year OV recall, Patient presents today for irritable bowel syndrome, irritable bowel syndrome, r/s o/v, 1 year fu., 6 month f/u, 6 month f/u, having issues again, fyi did well on the Xifaxan, 6 month f/u & stomach issues, Sooner appt, abdominal pain, Flu Shot, rectal bleeding Insurance Providers [facility] Health Member Patient Patient Patient Patient Patient Subscriber Subscriber Subscriber Group Insurance Plan Plan Plan Plan ID Relationship Address Phone Name Date of ID Name Date of No Type Insurance Insurance Insurance Coverage to Subscriber Address Phone Name Dates [facility] [phone] [facility] [place] [phone] [id number] [facility] [address] [facility] [address] [facility] [address]
--- OUTSIDE RECORDS SUMMARY | 2022-03-07 09:59 | XMS_ITS | Continuity of Care Document ---
:1945 Author Organization [facility] Address [address] [place] [id number] Care Team Providers Name Role Phone Charu Santos MD Primary Care Physician Encounter [facility] Date(s): 04/14/21 - 05/14/[address] [address]- Attending Physician: Narcisa Patterson Admitting Physician: AdmNarcisa wilcox Referring Physician: AdmtrNarcisa Allergies, Adverse Reactions, Alerts Substance Reaction Severity Status codeine itching Active morphine itching Active Demerol HCl itching Active CeleBREX rash Active Medications amLODIPine 5 mg oral tablet 5 mg, 1, tablet, By Mouth, Daily, # 30 tablet, Refills 0, Maintenance, 04/14/21 11:14:00 EST, Partial fill upon patient request if the prescription is for a schedule II opioid drug. Start Date: 04/14/21 Status: Orderedaspirin 81 mg oral tablet 1 tablet = 81 mg, By Mouth, Daily, 0 Refills, Maintenance, 03/22/14 9:20:13 Start Date: 03/22/14 Status: Orderedcitalopram 10 mg oral tablet 10 mg, 1, tablet, By Mouth, Daily, # 30 tablet, Refills 0, Maintenance, 04/14/21 11:14:00 EST, Partial fill upon patient request if the prescription is for a schedule II opioid drug. Start Date: 04/14/21 Status: OrderedCrestor 5 mg oral tablet 1 tablet = 5 mg, By Mouth, Daily, # 30 tablet, 0 Refills, Maintenance, 04/14/21 11:14:00 EST, Tablet, Partial fill upon patient request if the prescription is for a schedule II opioid drug. Start Date: 04/14/21 Status: Orderedesomeprazole 40 mg oral enteric coated [...] II opioid drug. Start Date: 04/14/21 Status: Orderedmelatonin 5 mg oral tablet 1 tablet = 5 mg, By Mouth, Daily at bedtime, Start 1 tablet by mouth at bedtime, increase weekly as needed to 3 tablet by mouth at bedtime, 0 Refills, Maintenance, 04/14/21 11:14:00 EST, Partial fill upon patient request if the prescription is for a s... Start Date: 04/14/21 Status: Orderedvalsartan 160 mg oral tablet 160 mg, 1, tablet, By Mouth, Daily, # 30 tablet, Refills 0, Maintenance, 04/14/21 11:13:00 EST, Partial fill upon patient request if the prescription is for a schedule II opioid drug. Start Date: 04/14/21 Status: Ordered Social History Social History Type Response Smoking Status Never smoker entered on: 03/22/14 Sex
--- NOTE | 2022-03-07 10:03 | ED_ITS ---
HPI - Abdominal Pain General Chief Complaint: Abdominal Pain <KATTY Alcocer Last Filed: 03/07/22 17:54> Stated Complaint: chest and abd pain <KATTY Alcocer Last Filed: 03/07/22 17:54> Time Seen by Provider: 03/07/22 09:01 <KATTY Alcocer Last Filed: 03/07/22 17:54> Source: patient <KATTY Alcocer Last Filed: 03/07/22 17:54> Mode of arrival: ambulatory <KATTY Alcocer Last Filed: 03/07/22 17:54> Limitations: no limitations <KATTY Alcocer Last Filed: 03/07/22 17:54> History of Present Illness HPI narrative: 76-year-old female with past medical history anxiety, HTN, HLD, IBS, osteopenia, polymyalgia rheumatica, cholecystectomy, presenting to the ED complaining of epigastric abdominal pain radiating to chest and around back since 02:00AM with associated nausea. Reports similar symptoms in the past with her IBS however not as severe. Denies fever, chills, vomiting, diarrhea, dysuria/hematuria, lightheadedness/dizziness, SOB, melena, hematochezia, hematuria <KATTY Alcocer Last Filed: 03/07/22 17:54> MD elicited complaint: abdominal pain <KATTY Alcocer Last Filed: 03/07/22 17:54> Onset (ago): hour(s) <KATTY Alcocer Last Filed: 03/07/22 17:54> Pain Consistency: constant <KATTY Alcocer Last Filed: 03/07/22 17:54> Related Data Home Medications: Home Medications Medication Instructions Recorded Confirmed esomeprazole magnesium 40 mg 40 mg PO DAILY 12/01/20 08/25/21 capsule,delayed release aspirin 81 mg tablet,delayed 81 mg PO DAILY 08/25/21 08/25/21 release cholecalciferol (vitamin D3) 50 50 mcg PO DAILY 08/25/21 08/25/21 mcg (2,000 unit) capsule coenzyme Q10 100 mg capsule 200 mg PO DAILY 08/25/21 08/25/21 (CoQ-10) melatonin 10 mg capsule 10 mg PO DAILY 08/25/21 08/25/21 probiotic PO 08/25/21 08/25/21 Previous Rx's Medication Instructions Recorded gabapentin 300 mg capsule 600 mg PO DAILY #180 caps 03/14/21 valsartan 160 mg tablet 160 mg PO DAILY #90 tabs 06/05/21 amlodipine 5 mg tablet 5 mg PO DAILY #90 tabs 09/06/21 furosemide 20 mg tablet 20 mg PO DAILY #90 tabs 02/06/22 rosuvastatin 5 mg tablet 5 mg PO Q OTHER DAY #45 tabs 02/20/22 citalopram 10 mg tablet 10 mg PO DAILY #90 tabs 03/01/22 <KATTY Alcocer - Last Filed: 03/07/22 17:54> Allergies/Adverse Reactions: Allergies Allergy/AdvReac Type Severity Reaction Status Date / Time atorvastatin [Lipitor] Allergy Intermediate myalgia Verified 08/25/21 11:54 celecoxib [From CELEBREX] Allergy Intermediate ITCHING, Verified 08/25/21 11:54 RASH rosuvastatin [Crestor] Allergy Intermediate myalagia Verified 08/25/21 11:54 codeine [Codeine] Allergy Mild ITCHING, Verified 08/25/21 11:54 itchy morphine [Morphine] Allergy Mild ITCHING, Verified 08/25/21 11:54 itchy meperidine [Demerol] Allergy Unknown unknown Verified 08/25/21 11:54 <KATTY Alcocer Last Filed: 03/07/22 17:54> Review of Systems Review of Systems Constitutional: No Fever, No Chills, No Fatigue, No Malaise ENT/Mouth: No Ear Pain, No Nasal Congestion, No Sinus Pain, No Hoarseness, No sore throat, No Rhinorrhea, No Swallowing Difficulty Eyes: No Eye Pain, No Swelling, No Redness, No Vision Changes Cardiovascular: + Chest Pain, No SOB, No Orthopnea, No Edema, No Palpitations Respiratory: No Cough, No Sputum, No Dyspnea Gastrointestinal: + Nausea, No Vomiting, No Diarrhea, No Constipation, + Abdominal pain Genitourinary: No Dysuria, No Urinary Frequency, No Hematuria, No Urgency, No Flank Pain, No Urinary Flow Changes, No Hesitancy Musculoskeletal: No joint pain, No Myalgias, No Joint Swelling Skin: No Skin Lesions, No rash Neuro: No Weakness, No Numbness, No Paresthesias, No Loss of Consciousness, No Dizziness, No Headache <KATTY Alcocer - Last Filed: 03/07/22 17:54> Yes all other systems are reviewed and are negative <KATTY Alcocer - Last Filed: 03/07/22 17:54> Constitutional: Reports as per HPI <KATTY Alcocer - Last Filed: 03/07/22 17:54> [facility] Past Medical History Attestation statement: The following information was validated with the patient. <KATTY Alcocer - Last Filed: 03/07/22 17:54> Medical History: Medical History Annual physical exam Anxiety History of mammogram HTN (hypertension) Hyperglycemia Hyperlipidemia IBS (irritable bowel syndrome) Medial meniscus tear Osteoarthritis Osteopenia PMR (polymyalgia rheumatica) Postmenopausal <KATTY Alcocer - Last Filed: 03/07/22 17:54> Surgical History: Surgical History H/O colonoscopy History of carpal tunnel release History of total left knee replacement Hx of cholecystectomy Hx of hysterectomy S/P lumbar spinal fusion <KATTY Alcocer - Last Filed: 03/07/22 17:54> Family History Family History: Family History Father Cancer of prostate Mother CAD (coronary artery disease) CHF (congestive heart failure) Hx of CABG <KATTY Alcocer - Last Filed: 03/07/22 17:54> Social History Social History: Social History Housing: House Alcohol intake: current Alcohol intake frequency: holidays/special occasions only Patient Tobacco Use Status: Never used Tobacco e-Cigarette/Vaping Use: Never Used Advance Directives: Yes Advance Directives Information Provided: Yes Advance Directives on File: No Current occupational status: retired Cognitive needs: No Hearing needs: No Vision needs: Yes <KATTY Aloccer - Last Filed: 03/07/22 17:54> Physical Exam ED Vital Signs: Vital Signs - 24 hr 03/07/22 07:40 03/07/22 11:45 03/07/22 15:39 Temperature 97.2 F 97.8 F 98.0 F Pulse Rate 65 54 78 Respiratory Rate 16 18 15 Blood Pressure 137/77 176/67 H Pulse Oximetry 97 97 Oxygen Delivery Method Room Air Room Air Room Air Oxygen Flow Rate 98 BMI result Body Mass Index 26.1 <KATTY Alcocer - Last Filed: 03/07/22 17:54> Vital Signs - 24 hr 03/07/22 07:40 03/07/22 11:45 03/07/22 15:39 Temperature 97.2 F 97.8 F 98.0 F Pulse Rate 65 54 78 Respiratory Rate 16 18 15 Blood Pressure 137/77 176/67 H Pulse Oximetry 97 97 Oxygen Delivery Method Room Air Room Air Room Air Oxygen Flow Rate 98 BMI result Body Mass Index 26.1 <Robyn Grover MD - Last Filed: 03/07/22 19:51> Const Other: In pain <KATTY Alcocer - Last Filed: 03/07/22 17:54> General: cooperative, healthy appearing and no acute distress <KATTY Alcocer - Last Filed: 03/07/22 17:54> Orientation/consciousness: patient oriented x3 <KATTY Alcocer - Last Filed: 03/07/22 17:54> Limitations: no limitations <KATTY Alcocer - Last Filed: 03/07/22 17:54> HENMT Head: Yes normal to inspection and Yes atraumatic <KATTY Alcocer - Last Filed: 03/07/22 17:54> Ears: hearing grossly normal bilaterally <KATTY Alcocer - Last Filed: 03/07/22 17:54> General nose exam: Normal external nose present <KATTY Alcocer - Last Filed: 03/07/22 17:54> Face and sinus: Yes normal facial exam <KATTY Alcocer - Last Filed: 03/07/22 17:54> Eyes General: appearance normal, both eyes and all related structures <KATTY Alcocer - Last Filed: 03/07/22 17:54> EOM: EOMs intact bilaterally <Geri Wu PA - Last Filed: 03/07/22 17:54> Neck Neck: Yes normal visual inspection and Yes no meningeal signs <Geri Wu PA - Last Filed: 03/07/22 17:54> Resp Effort & Inspection: normal respiratory effort and no respiratory distress <Geri Wu PA - Last Filed: 03/07/22 17:54> Auscultation: clear to auscultation bilaterally, no crackles, no rales, no rhonchi and no wheezes <Geri Wu PA - Last Filed: 03/07/22 17:54> Cardio Rate: regular rate <Geri Wu PA - Last Filed: 03/07/22 17:54> Heart sounds: S1 normal heart sound present and S2 normal heart sound present <Geri Wu PA - Last Filed: 03/07/22 17:54> GI Inspection: Yes normal to inspection <Geri Wu PA - Last Filed: 03/07/22 17:54> Palpation (GI): Soft to palpation, Tenderness to palpation present (GI) in the epigastrum and periumbilically; with no rebound tenderness, no guarding and not rigid <Geri Wu PA - Last Filed: 03/07/22 17:54> General: Yes no CVA tenderness <Geri Wu PA - Last Filed: 03/07/22 17:54> Back/Spine/Pelvis Back: no CVA tenderness <Geri Wu PA - Last Filed: 03/07/22 17:54> Skin Rashes: no rashes <Geri uW PA - Last Filed: 03/07/22 17:54> Wounds: no wounds <Geri Wu PA - Last Filed: 03/07/22 17:54> Neuro General: patient oriented x3, tone normal and no meningeal signs <Geri Wu PA - Last Filed: 03/07/22 17:54> Gait exam (Neuro): Normal gait present <Geri Wu PA - Last Filed: 03/07/22 17:54> Extrem General: Yes normal to inspection, Yes no pedal edema and Yes no calf tenderness <KATTY Alcocer - Last Filed: 03/07/22 17:54> Course Course Course Narrative: 1132--no leukocytosis. H&H stable. AST and ALT very elevated. Troponin negative. CT abdomen pelvis w IV con IMPRESSION: 1.? No acute findings in the abdomen or pelvis. No inflammatory changes. 2.? There is mild intrahepatic and extrahepatic biliary ductal dilatation status post cholecystectomy. This is mildly increased from prior. No ductal filling defect seen. ? Fleischner guidelines were followed. >> will obtain ultrasound for further evaluation. On re-evaluation patient reports mild symptomatic improvement, however still uncomfortable will give IV Dilaudid due to allergies 1533--US abdomen limited IMPRESSION: ? 1. No acute abnormality. 2. Right renal cyst demonstrating benign features correlating with CT findings, not requiring follow-up. 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 Will consult surgery --spoke with surgery, Dr. Bentley recommended GI consult for possible MRCP. -spoke with GI, Dr. Gallagher, recommended MRCP -1800--ED care transferred to Dr. Grvoer pending MRCP and dispo per results <KATTY Alcocer - Last Filed: 03/07/22 17:54> Reevaluation(s) Reevaluation #1: 76-year-old female who was signed out to me for follow-up on MRCP, pain has significantly resolved and she will be discharged home in stable condition with a referral to follow-up with GI. MRCP suggests that the intrahepatic ductal dilatation is progressive in age related. There was no evidence of stones but there was a noted pancreatic divisum variant which may have contributed to patient's presentation. She was informed of all results. <Robyn Grover MD - Last Filed: 03/07/22 19:51> Time: 19:47 <Robyn Grover MD - Last Filed: 03/07/22 19:51> MDM - Abdominal Pain MDM Narrative Medical decision making narrative: 76-year-old female with past medical history anxiety, HTN, HLD, IBS, osteopenia, polymyalgia rheumatica, cholecystectomy, presenting to the ED complaining of epigastric abdominal pain radiating to chest and around back since 02:00AM with associated nausea. On exam vital signs stable, appears in pain, lungs CTA, abdomen soft with epigastric and periumbilical tenderness, no rebound or guarding, no CVA tenderness. No pedal edema. Concern for atypical ACS vs pancreatitis vs PUD/gastritis vs appendicitis or diverticulitis vs IBS flare. Low suspicion for PE/dissection or AAA, GI bleed Plan: EKG, labs, UA, CXR, CT AP, IVF, symptomatic treatment <KATTY Alcocer - Last Filed: 03/07/22 17:54> Differential Diagnosis Differential diagnosis: Likely abdominal pain, acute appendicitis, diverticulitis, gastritis and pancreatitis <KATTY Alcocer - Last Filed: 03/07/22 17:54> Medical Records Attestation: I reviewed the patient's medical records. <KATTY Alcocer - Last Filed: 03/07/22 17:54> Lab Data Attestation: I reviewed the patient's lab results. <KATTY Alcocer - Last Filed: 03/07/22 17:54> Result diagrams: : 03/07/22 09:25 03/07/22 09:25 <KATYT Alcocer - Last Filed: 03/07/22 17:54> Labs: Lab Results 03/07/22 03/07/22 03/07/22 Range/Units 09:25 09:25 09:25 WBC 7.7 (4.8-10.8) X10*3/uL RBC 4.21 (4.20-5.50) X10*6/uL Hgb 12.9 (12.0-16.0) g/dl Hct 38.4 (37.0-47.0) % MCV 91.2 (80.0-98.0) fL MCH 30.6 (27.0-33.0) pg MCHC 33.6 (31.0-35.0) g/dl RDW 13.9 (11.0-16.0) % Plt Count 219 (160-400) X10*3/uL MPV 9.0 L (9.4-12.3) fL Immature Gran % (Auto) 0.4 (0.0-0.4) % Neut % (Auto) 69.7 (45-73) % Lymph % (Auto) 20.7 (20-40) % [place] % (Auto) 7.0 (2-11) % Eos % (Auto) 1.8 (0-4) % Baso % (Auto) 0.4 (0-2) % Lymph # (Auto) 1.6 (1.2-4.9) X10*3/uL [place] # (Auto) 0.5 (0.1-1.2) X10*3/uL Eos # (Auto) 0.1 (0.0-0.4) X10*3/uL Baso # (Auto) 0.0 (0.0-0.2) X10*3/uL Abs Immat Gran (auto) 0.03 (0.00-0.03) X10*3/uL Absolute Neuts (auto) 5.4 (2.0-8.3) x10*3/uL Absolute Nucleated RBC 0.000 (0.0-0.012) X10*3/uL Nucleated RBC % (auto) 0.0 (0.0-0.2) /100WBC Sodium 142 (135-145) mmol/L Potassium 3.7 (3.3-5.1) mmol/L Chloride 104 (96-108) mmol/L Carbon Dioxide 25 (22-29) mmol/L Anion Gap 17 (12-20) BUN 14 (9-16) mg/dL Creatinine 0.67 (0.5-1.4) mg/dL Estim Creat Clear Calc 71.7 Estimated GFR > 60 Random Glucose 109 (60-115) mg/dL Calcium 9.4 (8.4-10.2) mg/dL Magnesium 2.1 (1.6-2.6) mg/dL Total Bilirubin 1.0 (0.0-1.0) mg/dL Direct Bilirubin 0.5 (0.0-0.5) mg/dL AST 168 H (5-31) U/L ALT 110 H (0-31) U/L Alkaline Phosphatase 133 H D (39-117) U/L Troponin I High Sens < 3.5 (<3.5-17.0) ng/L Total Protein 6.6 (6.5-8.0) g/dL Albumin 4.5 (3.5-5.0) g/dL Lipase 19 (8-78) U/L Urine Color Urine Appearance Urine pH (5.0-9.0) Ur Specific [place] (1.005-1.025) Urine Protein (Neg-Trace) mg/dL Urine Glucose (UA) (Negative) mg/dL Urine Ketones (Negative) mg/dL Urine Blood (Negative) Urine Nitrite (Negative) Ur Leukocyte Esterase (Negative) COVID-19 (BEN) (Negative) COVID-19 Clin Com 03/07/22 03/07/22 Range/Units 09:31 12:32 WBC (4.8-10.8) X10*3/uL RBC (4.20-5.50) X10*6/uL Hgb (12.0-16.0) g/dl Hct (37.0-47.0) % MCV (80.0-98.0) fL MCH (27.0-33.0) pg MCHC (31.0-35.0) g/dl RDW (11.0-16.0) % Plt Count (160-400) X10*3/uL MPV (9.4-12.3) fL Immature Gran % (Auto) (0.0-0.4) % Neut % (Auto) (45-73) % Lymph % (Auto) (20-40) % Lawrence % (Auto) (2-11) % Eos % (Auto) (0-4) % Baso % (Auto) (0-2) % Lymph # (Auto) (1.2-4.9) X10*3/uL [place] # (Auto) (0.1-1.2) X10*3/uL Eos # (Auto) (0.0-0.4) X10*3/uL Baso # (Auto) (0.0-0.2) X10*3/uL Abs Immat Gran (auto) (0.00-0.03) X10*3/uL Absolute Neuts (auto) (2.0-8.3) x10*3/uL Absolute Nucleated RBC (0.0-0.012) X10*3/uL Nucleated RBC % (auto) (0.0-0.2) /100WBC Sodium (135-145) mmol/L Potassium (3.3-5.1) mmol/L Chloride (96-108) mmol/L Carbon Dioxide (22-29) mmol/L Anion Gap (12-20) BUN (9-16) mg/dL Creatinine (0.5-1.4) mg/dL Estim Creat Clear Calc Estimated GFR Random Glucose (60-115) mg/dL Calcium (8.4-10.2) mg/dL Magnesium (1.6-2.6) mg/dL Total Bilirubin (0.0-1.0) mg/dL Direct Bilirubin (0.0-0.5) mg/dL AST (5-31) U/L ALT (0-31) U/L Alkaline Phosphatase (39-117) U/L Troponin I High Sens (<3.5-17.0) ng/L Total Protein (6.5-8.0) g/dL Albumin (3.5-5.0) g/dL Lipase (8-78) U/L Urine Color Yellow Urine Appearance Clear Urine pH 7.0 (5.0-9.0) Ur Specific [place] 1.010 (1.005-1.025) Urine Protein Negative (Neg-Trace) mg/dL Urine Glucose (UA) Negative (Negative) mg/dL Urine Ketones Negative (Negative) mg/dL Urine Blood Negative (Negative) Urine Nitrite Negative (Negative) Ur Leukocyte Esterase Negative (Negative) COVID-19 (BEN) Negative (Negative) COVID-19 Clin Com See Note <KATTY Alcocer - Last Filed: 03/07/22 17:54> Lab Results 03/07/22 03/07/22 03/07/22 Range/Units 09:25 09:25 09:25 WBC 7.7 (4.8-10.8) X10*3/uL RBC 4.21 (4.20-5.50) X10*6/uL Hgb 12.9 (12.0-16.0) g/dl Hct 38.4 (37.0-47.0) % MCV 91.2 (80.0-98.0) fL MCH 30.6 (27.0-33.0) pg MCHC 33.6 (31.0-35.0) g/dl RDW 13.9 (11.0-16.0) % Plt Count 219 (160-400) X10*3/uL MPV 9.0 L (9.4-12.3) fL Immature Gran % (Auto) 0.4 (0.0-0.4) % Neut % (Auto) 69.7 (45-73) % Lymph % (Auto) 20.7 (20-40) % Lawrence % (Auto) 7.0 (2-11) % Eos % (Auto) 1.8 (0-4) % Baso % (Auto) 0.4 (0-2) % Lymph # (Auto) 1.6 (1.2-4.9) X10*3/uL [place] # (Auto) 0.5 (0.1-1.2) X10*3/uL Eos # (Auto) 0.1 (0.0-0.4) X10*3/uL Baso # (Auto) 0.0 (0.0-0.2) X10*3/uL Abs Immat Gran (auto) 0.03 (0.00-0.03) X10*3/uL Absolute Neuts (auto) 5.4 (2.0-8.3) x10*3/uL Absolute Nucleated RBC 0.000 (0.0-0.012) X10*3/uL Nucleated RBC % (auto) 0.0 (0.0-0.2) /100WBC Sodium 142 (135-145) mmol/L Potassium 3.7 (3.3-5.1) mmol/L Chloride 104 (96-108) mmol/L Carbon Dioxide 25 (22-29) mmol/L Anion Gap 17 (12-20) BUN 14 (9-16) mg/dL Creatinine 0.67 (0.5-1.4) mg/dL Estim Creat Clear Calc 71.7 Estimated GFR > 60 Random Glucose 109 (60-115) mg/dL Calcium 9.4 (8.4-10.2) mg/dL Magnesium 2.1 (1.6-2.6) mg/dL Total Bilirubin 1.0 (0.0-1.0) mg/dL Direct Bilirubin 0.5 (0.0-0.5) mg/dL AST 168 H (5-31) U/L ALT 110 H (0-31) U/L Alkaline Phosphatase 133 H D (39-117) U/L Troponin I High Sens < 3.5 (<3.5-17.0) ng/L Total Protein 6.6 (6.5-8.0) g/dL Albumin 4.5 (3.5-5.0) g/dL Lipase 19 (8-78) U/L Urine Color Urine Appearance Urine pH (5.0-9.0) Ur Specific [place] (1.005-1.025) Urine Protein (Neg-Trace) mg/dL Urine Glucose (UA) (Negative) mg/dL Urine Ketones (Negative) mg/dL Urine Blood (Negative) Urine Nitrite (Negative) Ur Leukocyte Esterase (Negative) COVID-19 (BEN) (Negative) COVID-19 Clin Com 03/07/22 03/07/22 Range/Units 09:31 12:32 WBC (4.8-10.8) X10*3/uL RBC (4.20-5.50) X10*6/uL Hgb (12.0-16.0) g/dl Hct (37.0-47.0) % MCV (80.0-98.0) fL MCH (27.0-33.0) pg MCHC (31.0-35.0) g/dl RDW (11.0-16.0) % Plt Count (160-400) X10*3/uL MPV (9.4-12.3) fL Immature Gran % (Auto) (0.0-0.4) % Neut % (Auto) (45-73) % Lymph % (Auto) (20-40) % [place] % (Auto) (2-11) % Eos % (Auto) (0-4) % Baso % (Auto) (0-2) % Lymph # (Auto) (1.2-4.9) X10*3/uL [place] # (Auto) (0.1-1.2) X10*3/uL Eos # (Auto) (0.0-0.4) X10*3/uL Baso # (Auto) (0.0-0.2) X10*3/uL Abs Immat Gran (auto) (0.00-0.03) X10*3/uL Absolute Neuts (auto) (2.0-8.3) x10*3/uL Absolute Nucleated RBC (0.0-0.012) X10*3/uL Nucleated RBC % (auto) (0.0-0.2) /100WBC Sodium (135-145) mmol/L Potassium (3.3-5.1) mmol/L Chloride (96-108) mmol/L Carbon Dioxide (22-29) mmol/L Anion Gap (12-20) BUN (9-16) mg/dL Creatinine (0.5-1.4) mg/dL Estim Creat Clear Calc Estimated GFR Random Glucose (60-115) mg/dL Calcium (8.4-10.2) mg/dL Magnesium (1.6-2.6) mg/dL Total Bilirubin (0.0-1.0) mg/dL Direct Bilirubin (0.0-0.5) mg/dL AST (5-31) U/L ALT (0-31) U/L Alkaline Phosphatase (39-117) U/L Troponin I High Sens (<3.5-17.0) ng/L Total Protein (6.5-8.0) g/dL Albumin (3.5-5.0) g/dL Lipase (8-78) U/L Urine Color Yellow Urine Appearance Clear Urine pH 7.0 (5.0-9.0) Ur Specific [place] 1.010 (1.005-1.025) Urine Protein Negative (Neg-Trace) mg/dL Urine Glucose (UA) Negative (Negative) mg/dL Urine Ketones Negative (Negative) mg/dL Urine Blood Negative (Negative) Urine Nitrite Negative (Negative) Ur Leukocyte Esterase Negative (Negative) COVID-19 (BEN) Negative (Negative) COVID-19 Clin Com See Note <Robyn Grover MD - Last Filed: 03/07/22 19:51> Discharge Plan Discharge Clinical Impression: Transaminitis, Abdominal pain, epigastric, Pancreatic divisum <KATTY Alcocer - Last Filed: 03/07/22 17:54> Patient Disposition: Home, Self-Care <KATTY Alcocer - Last Filed: 03/07/22 17:54> Instructions: Liver Disease Diet (DC), Abdominal Pain (ED) <KATTY Alcocer - Last Filed: 03/07/22 17:54> Additional Instructions: 1. Resume all home medications as prescribed. 2. You have been provided with a referral to follow-up with gastroenterology into call the office in the morning to set up an appointment for re-evaluation and further outpatient management. 3. Return to the ER for worsening symptoms. <KATTY Alcocer - Last Filed: 03/07/22 17:54> Prescriptions: No Action gabapentin 300 mg capsule 600 mg PO DAILY Qty: 180 3RF valsartan 160 mg tablet 160 mg PO DAILY Qty: 90 3RF amlodipine 5 mg tablet 5 mg PO DAILY Qty: 90 3RF furosemide 20 mg tablet 20 mg PO DAILY Qty: 90 3RF rosuvastatin 5 mg tablet 5 mg PO Q OTHER DAY Qty: 45 3RF citalopram 10 mg tablet 10 mg PO DAILY Qty: 90 3RF melatonin 10 mg capsule 10 mg PO DAILY Rx Instructions: 5 mg daily esomeprazole magnesium 40 mg capsule,delayed release(DR/EC) 40 mg PO DAILY aspirin 81 mg tablet,delayed release (DR/EC) 81 mg PO DAILY probiotic PO cholecalciferol (vitamin D3) 50 mcg (2,000 unit) capsule 50 mcg PO DAILY coenzyme Q10 [CoQ-10] 100 mg capsule 200 mg PO DAILY <KATTY Alcocer - Last Filed: 03/07/22 17:54> Referrals: Charu Santos MD [Primary Care Provider] - Jose Gallagher [Physician] - <KATTY Alcocer - Last Filed: 03/07/22 17:54>
[2022-03-07 10:04] LABS: Troponin-I High Sensitivity < 3.5 ng/L (<3.5-17.0)
[2022-03-07 10:10] LABS: Alanine Aminotransferase 110 U/L (0-31); Albumin Level 4.5 g/dL (3.5-5.0); Alkaline Phosphatase 133 U/L (39-117); Anion Gap 17 (12-20); Aspartate Amino Transferase 168 U/L (5-31); Bilirubin Direct 0.5 mg/dL (0.0-0.5); Blood Urea Nitrogen 14 mg/dL (9-16); Calcium 9.4 mg/dL (8.4-10.2); Carbon Dioxide 25 mmol/L (22-29); Chloride 104 mmol/L (96-108); Creatinine Clr Calc Pharmacy 71.7; Estimated Glomerular Filt Rate > 60; Glucose Random 109 mg/dL (60-115); Lipase 19 U/L (8-78); Magnesium 2.1 mg/dL (1.6-2.6); Potassium 3.7 mmol/L (3.3-5.1); Sodium 142 mmol/L (135-145); Total Protein 6.6 g/dL (6.5-8.0)
[2022-03-07] MEDS: iohexoL 350 MG/ML 100 ML INFUS..BTL IV (11:10)
[2022-03-07 11:45] VITALS: BP 176/67; PULSE 54; RESP 18; TEMP 36.6
[2022-03-07] MEDS: HYDROmorphone HCl 0.5 MG/0.5 ML SYRINGE IVPUSH (12:01)
--- NOTE | 2022-03-07 12:35 | PC.NURSE ---
Pt medicated per MAR for pain, resting comfortably. Understands the plan for an ultrasound, offers no complaints at this time.
[2022-03-07 13:04] LABS: COVID-19 Test Negative (Negative); IDNOW Serial# 16C4AD1C
[2022-03-07] MEDS: Metoclopramide HCl 10 MG/2 ML VIAL IVPUSH (14:33)
[2022-03-07] MEDS: HYDROmorphone HCl 1 MG/ML SYRINGE IVPUSH (14:34)
[2022-03-07 15:39] VITALS: PULSE 78; RESP 15; TEMP 36.7; O2SAT 97
== END 2022-03-07 20:34 | disposition home or self-care (01) ==
PROVIDERS: Physician Assistant; Emergency Provider Emergency Medicine; PCP Internal Medicine
DX: R10.11 Right upper quadrant pain (principal); R07.89 Other chest pain; R11.2 Nausea with vomiting, unspecified; Z20.822 Contact with and (suspected) exposure to COVID-19; Z79.899 Other long term (current) drug therapy
CPT/HCPCS: 36415; 74177; 74181; 76705; 80048; 80076; 81003; 83690; 83735; 84484; 85025; 87635; 93005; 96361; 96374; 96375; 96376; 99284; 99285; J1170; J2405; J2765; Q9967

== ENCOUNTER 2022-03-15 13:34 | Outpatient (REF) | payer MEDICARE, SELFPAY ==
[2022-03-15 13:48] LABS: MANUAL DIFF FLAG NO
[2022-03-15 14:15] LABS: Basophils Percent Auto 0.4 % (0-2); Basophils Percent Auto 0.5 % (0-2); Eosinophils Absolute Auto 0.2 X10*3/uL (0.0-0.4); Eosinophils Percent Auto 2.2 % (0-4); Hematocrit 37.3 % (37.0-47.0); Hematocrit 37.4 % (37.0-47.0); Hemoglobin 12.1 g/dl (12.0-16.0); Hemoglobin 12.3 g/dl (12.0-16.0); Imm Gran Abs Auto 0.02 X10*3/uL (0.00-0.03); Imm Gran Abs Auto 0.03 X10*3/uL (0.00-0.03); Imm Gran Pct Auto 0.2 % (0.0-0.4); Imm Gran Pct Auto 0.3 % (0.0-0.4); Lymphocytes Absolute Auto 2.1 X10*3/uL (1.2-4.9); Lymphocytes Percent Auto 23.4 % (20-40); Lymphocytes Percent Auto 23.5 % (20-40); Mean Corpuscular HGB Conc 32.4 g/dl (31.0-35.0); Mean Corpuscular HGB Conc 32.9 g/dl (31.0-35.0); Mean Corpuscular Hemoglobin 29.7 pg (27.0-33.0); Mean Corpuscular Hemoglobin 29.9 pg (27.0-33.0); Mean Corpuscular Volume 91.4 fL (80.0-98.0); Mean Platelet Volume 9.1 fL (9.4-12.3); Monocytes Absolute Auto 0.6 X10*3/uL (0.1-1.2); Monocytes Absolute Auto 0.7 X10*3/uL (0.1-1.2); Monocytes Percent Auto 7.4 % (2-11); Monocytes Percent Auto 7.6 % (2-11); Neutrophils Absolute Auto 5.7 x10*3/uL (2.0-8.3); Neutrophils Absolute Auto 5.9 x10*3/uL (2.0-8.3); Neutrophils Percent Auto 66.2 % (45-73); Neutrophils Percent Auto 66.3 % (45-73); Platelet Count 224 X10*3/uL (160-400); Platelet Count 232 X10*3/uL (160-400); Red Blood Count 4.08 X10*6/uL (4.20-5.50); Red Blood Count 4.11 X10*6/uL (4.20-5.50); Red Cell Distribution Width 13.4 % (11.0-16.0); White Blood Count 8.6 X10*3/uL (4.8-10.8); White Blood Count 8.9 X10*3/uL (4.8-10.8)
[2022-03-15 14:58] LABS: Alanine Aminotransferase 33 U/L (0-31); Albumin Level 4.4 g/dL (3.5-5.0); Alkaline Phosphatase 97 U/L (39-117); Aspartate Amino Transferase 21 U/L (5-31); Bilirubin Direct 0.4 mg/dL (0.0-0.5); Bilirubin Total 1.2 mg/dL (0.0-1.0); Total Protein 6.3 g/dL (6.5-8.0)
[2022-03-15 15:15] LABS: Lipase 36 U/L (8-78)
== END 2022-03-15 13:35 | disposition home or self-care (01) ==
LOC: HO.LAB 13:34
PROVIDERS: PCP Internal Medicine; Visit Provider Internal Medicine Gastroenterology
DX: E78.5 Hyperlipidemia, unspecified (principal); I10 Essential (primary) hypertension; R73.9 Hyperglycemia, unspecified
CPT/HCPCS: 36415; 80076; 83690; 85025

== ENCOUNTER 2022-05-30 08:49 | Outpatient (REF) | payer MEDICARE, SELFPAY ==
[2022-05-30 12:07] LABS: Alanine Aminotransferase 15 U/L (0-31); Albumin Level 4.1 g/dL (3.5-5.0); Alkaline Phosphatase 89 U/L (39-117); Anion Gap 14 (12-20); Aspartate Amino Transferase 15 U/L (5-31); Bilirubin Total 1.3 mg/dL (0.0-1.0); Blood Urea Nitrogen 19 mg/dL (9-16); Calcium 9.4 mg/dL (8.4-10.2); Carbon Dioxide 27 mmol/L (22-29); Chloride 107 mmol/L (96-108); Cholesterol 220 mg/dL; Estimated Glomerular Filt Rate > 60; Glucose Fasting 104 mg/dL (60-99); HDL Cholesterol 103 mg/dL; LDL Cholesterol Calculated 91 mg/dl; Potassium 3.9 mmol/L (3.3-5.1); Sodium 144 mmol/L (135-145); Total Protein 6.1 g/dL (6.5-8.0); Triglycerides 134 mg/dL
[2022-05-30 12:28] LABS: TSH reflex Free T4 1.29 uIU/mL (0.32-4.0)
[2022-05-30 12:32] LABS: Estimated Average Glucose 103 mg/dL; Hemoglobin A1c % 5.2 %
== END 2022-05-30 08:50 | disposition home or self-care (01) ==
LOC: HO.HMGCLDS 08:49
PROVIDERS: PCP Internal Medicine; Visit Provider Internal Medicine
DX: E78.5 Hyperlipidemia, unspecified (principal); R73.9 Hyperglycemia, unspecified; I10 Essential (primary) hypertension
CPT/HCPCS: 36415; 80053; 80061; 83036; 84443

== ENCOUNTER 2022-12-04 09:36 | Outpatient (REF) | payer MEDICARE, SELFPAY ==
[2022-12-04 11:49] LABS: Estimated Average Glucose 105 mg/dL; Hemoglobin A1c % 5.3 %
[2022-12-04 12:37] LABS: Alanine Aminotransferase 17 U/L (0-31); Albumin Level 4.2 g/dL (3.5-5.0); Alkaline Phosphatase 80 U/L (39-117); Anion Gap 16 (12-20); Aspartate Amino Transferase 15 U/L (5-31); Blood Urea Nitrogen 14 mg/dL (9-16); Calcium 9.7 mg/dL (8.4-10.2); Carbon Dioxide 23 mmol/L (22-29); Chloride 108 mmol/L (96-108); Cholesterol 200 mg/dL; Estimated Glomerular Filt Rate > 60; Glucose Fasting 108 mg/dL (60-99); HDL Cholesterol 90 mg/dL; LDL Cholesterol Calculated 91 mg/dl; Sodium 143 mmol/L (135-145); Total Protein 6.4 g/dL (6.5-8.0); Triglycerides 98 mg/dL
== END 2022-12-04 09:37 | disposition home or self-care (01) ==
LOC: HO.HMGCLDS 09:36
PROVIDERS: PCP Internal Medicine; Visit Provider Internal Medicine
DX: R73.9 Hyperglycemia, unspecified (principal); E78.5 Hyperlipidemia, unspecified; I10 Essential (primary) hypertension
CPT/HCPCS: 36415; 80053; 80061; 83036

== ENCOUNTER 2022-12-05 11:08 | Outpatient (AMB) | payer MEDICARE, SELFPAY ==
--- NOTE | 2022-12-05 11:27 | A.OFFPC_ITS ---
Vital Signs 12/05/22 11:29 Weight 160 lb BP 118/74 Blood Pressure Location Lt brachial Position Sitting Pulse 72 Pulse Source Pulse Oximeter Pulse Oximetry (%) 97 Oxygen Delivery Method Room Air Intake Visit Reasons: 6m follow up Allergies atorvastatin [Lipitor] Allergy (Intermediate, Verified 12/05/22 11:29) myalgia celecoxib [From CELEBREX] Allergy (Intermediate, Verified 12/05/22 11:29) ITCHING, RASH rosuvastatin [Crestor] Allergy (Intermediate, Verified 12/05/22 11:29) myalagia codeine [Codeine] Allergy (Mild, Verified 12/05/22 11:29) ITCHING, itchy morphine [Morphine] Allergy (Mild, Verified 12/05/22 11:29) ITCHING, itchy meperidine [Demerol] Allergy (Unknown, Verified 12/05/22 11:29) unknown Tobacco use date assessed: 06/07/22 HPI 6m follow up HPI Details Pt presents for f/u HTN, hyperlipid, anxiety, stable on meds PFSH Medical History Annual physical exam Anxiety History of mammogram HTN (hypertension) Hyperglycemia Hyperlipidemia IBS (irritable bowel syndrome) Medial meniscus tear Osteoarthritis Osteopenia PMR (polymyalgia rheumatica) Postmenopausal Surgical History H/O colonoscopy History of carpal tunnel release History of total left knee replacement Hx of cholecystectomy Hx of hysterectomy S/P lumbar spinal fusion Family History Father Cancer of prostate Mother CAD (coronary artery disease) CHF (congestive heart failure) Hx of CABG Social History Housing: House Alcohol intake: current Alcohol intake frequency: holidays/special occasions only Patient Tobacco Use Status: Never used Tobacco e-Cigarette/Vaping Use: Never Used Current occupational status: retired Cognitive needs: No Hearing needs: No Vision needs: Yes Questionnaire Thrive Questionnaire Date Thrive assessed: 06/07/22 AUDIT C Alcohol Use Questionnaire (AUDIT-C) 1. How often do you have a drink containing alcohol?: 4 or more times a week 2. How many drinks containing alcohol do you have on a typical day when you are drinking?: 1 or 2 3. How often do you have six or more drinks on one occasion?: Never Total Score: 4 RODRIGUE-7 AMB Questionnaire RODRIGUE-7 Date RODRIGUE - 7 assessed: 06/07/22 Feeling nervous, anxious, or on edge: 0 = Not at all Not being able to stop or control worryin = Not at all Worrying too much about different things: 1 = Several days Trouble relaxin = Several days Being so restless that it is hard to sit still: 0 = Not at all Becoming easily annoyed or irritable: 0 = Not at all Feeling afraid as if something awful might happen: 0 = Not at all Total RODRIGUE-7 score (0-4 normal; 5-9 mild; 10-14 moderate; 15-21 severe): 2 Source: Developed by Drs. Jan Phan, Corrine Vinson, Conner Huddleston and colleagues, with an educational candido from [employer]. Review of Systems Const All systems reviewed & are unremarkable except as noted in HPI and below Reports no additional complaints Eyes Reports no additional complaints ENT Reports no additional complaints Card Reports no additional complaints Resp Reports no additional complaints GI Reports no additional complaints Reports no additional complaints Physical exam (Primary Care) Vital Signs: Last Vital Signs Pulse 72 12/05/22 11:29 BP 118/74 12/05/22 11:29 Pulse Ox 97 12/05/22 11:29 Oxygen Delivery Method Room Air 12/05/22 11:29 Tobacco/Smoking Status: Tobacco use Status Tobacco use date assessed 06/07/22 12/05/22 11:32 Patient Tobacco Use Status Never used Tobacco 12/05/22 11:32 e-Cigarette/Vaping Use Never Used 12/05/22 11:32 Thrive Assessment: Date of Thrive Assessment Date Thrive assessed 06/07/22 12/05/22 11:32 Const General: no acute distress HENMT Head: Yes normal to inspection Ears: hearing grossly normal bilaterally Face and sinus: Yes normal facial exam Mouth: Normal oral and palatal mucosa present Throat: Yes posterior oropharynx normal Eyes General: appearance normal, both eyes and all related structures Neck Neck: Yes no lymphadenopathy and Yes supple Resp Effort & Inspection: normal respiratory effort Auscultation: clear to auscultation bilaterally Cardio Rhythm: regular rhythm Heart sounds: S1 normal heart sound present and S2 normal heart sound present GI Inspection: Yes normal to inspection Palpation (GI): Soft to palpation Percussion: Yes normal to percussion Auscultation: normal bowel sounds Assessment and Plan Assessment & Plan (1) Hyperglycemia: Code(s): R73.9 - Hyperglycemia, unspecified Plan: A1C is 5.3, CONTINUE ADA DIET REGULAR EXERCISE FOLLOW-UP IN 6 MONTHS (2) Hypertension: Code(s): I10 - Essential (primary) hypertension Qualifiers: Hypertension type: essential hypertension Qualified Code(s): I10 - Essential (primary) hypertension Plan: Continue current medications (3) Hyperlipidemia: Code(s): E78.5 - Hyperlipidemia, unspecified Plan: Continue Crestor Coding Level of Care Code Est Pt Level 4 (31409) Diagnoses Hyperglycemia R73.9 Hypertension I10 Hypertension type: essential hypertension Hyperlipidemia E78.5
[2022-12-05 11:29] VITALS: BP 118/74; PULSE 72; O2SAT 97
== END 2022-12-05 12:37 | disposition home or self-care (01) ==
PROVIDERS: Visit Provider Internal Medicine
DX: R73.9 Hyperglycemia, unspecified (principal); I10 Essential (primary) hypertension; E78.5 Hyperlipidemia, unspecified
CPT/HCPCS: 99214

== ENCOUNTER 2023-02-21 15:02 | Emergency (ER) | payer MEDICARE, SELFPAY ==
[2023-02-21 16:03] VITALS: BP 168/80; PULSE 64; RESP 18; TEMP 36; O2SAT 97; BMI 25.8
--- NOTE | 2023-02-21 16:10 | ED_ITS ---
HPI - Skin/Abscess/Foreign Bdy General Chief complaint: Skin/Abscess/Foreign Body Stated complaint: rash on right arm Time Seen by Provider: 02/21/23 16:14 Source: patient, RN notes reviewed and old records reviewed Mode of arrival: ambulatory History of Present Illness HPI narrative: 77-year-old female with a past medical history of hypertension, HLD, anxiety, presenting to the ED complaining of suspected poison ambreen to left arm x few days after gardening. Admits to similar symptoms in the past. Has been taking Benadryl at night with some relief. Reports mild drainage to area and erythema. Denies fever/chills, rash to other area SOB, throat closing sensation MD complaint: rash Onset (ago): day(s) Related Data Home Medications Medication Instructions Recorded Confirmed aspirin 81 mg tablet,delayed 81 mg PO DAILY 08/25/21 06/07/22 release coenzyme Q10 100 mg capsule 200 mg PO DAILY 08/25/21 06/07/22 (CoQ-10) probiotic PO 08/25/21 06/07/22 Previous Rx's Medication Instructions Recorded citalopram 10 mg tablet 10 mg PO DAILY #90 tabs 03/01/22 gabapentin 300 mg capsule 600 mg (2 x 300 mg) PO DAILY #180 03/26/22 caps valsartan 160 mg tablet 160 mg PO DAILY #90 tabs 05/28/22 amlodipine 5 mg tablet 5 mg PO DAILY #90 tabs 10/12/22 rosuvastatin 5 mg tablet 5 mg PO Q OTHER DAY #45 tabs 01/23/23 cephalexin 500 mg capsule 500 mg PO QID 7 days #28 caps 02/21/23 hydrocortisone 1 % topical cream 1 appl topical BID PRN itching 02/21/23 (Anti-Itch (hydrocortisone)) #28.35 grams Allergies Allergy/AdvReac Type Severity Reaction Status Date / Time atorvastatin [Lipitor] Allergy Intermediate myalgia Verified 12/05/22 11:29 celecoxib [From CELEBREX] Allergy Intermediate ITCHING, Verified 12/05/22 11:29 RASH rosuvastatin [Crestor] Allergy Intermediate myalagia Verified 12/05/22 11:29 codeine [Codeine] Allergy Mild ITCHING, Verified 12/05/22 11:29 itchy morphine [Morphine] Allergy Mild ITCHING, Verified 12/05/22 11:29 itchy meperidine [Demerol] Allergy Unknown unknown Verified 12/05/22 11:29 Review of Systems 2 Review of Systems: Constitutional: No Fever, No Chills ENT/Mouth: No Ear Pain, No Swallowing Difficulty Cardiovascular: No Chest Pain, No SOB Respiratory: No Cough Gastrointestinal: No Nausea, No Vomiting, No Abdominal pain Musculoskeletal: No joint pain, No Myalgias, No Joint Swelling Skin: No Skin Lesions, +rash Neuro: No Weakness, No Numbness, No Paresthesias Yes all other systems are reviewed and are negative Constitutional: Constitutional: Reports as per [facility] Past Medical History Attestation statement: The following information was validated with the patient. Source: old records reviewed Medical History Hyperglycemia Postmenopausal Annual physical exam HTN (hypertension) Medial meniscus tear Anxiety Osteoarthritis Osteopenia History of mammogram IBS (irritable bowel syndrome) Hyperlipidemia PMR (polymyalgia rheumatica) Surgical History History of total left knee replacement Hx of cholecystectomy History of carpal tunnel release Hx of hysterectomy S/P lumbar spinal fusion H/O colonoscopy Family History Family History Father Cancer of prostate Mother CAD (coronary artery disease) CHF (congestive heart failure) Hx of CABG Social History Social History Housing: House Alcohol intake: current Alcohol intake frequency: holidays/special occasions only Patient Tobacco Use Status: Never used Tobacco e-Cigarette/Vaping Use: Never Used Advance Directives: No Advance Directives Information Provided: No Current occupational status: retired Cognitive needs: No Hearing needs: No Vision needs: Yes Physical Exam 2 Vital Signs: Vital Signs: Last Vital Signs Temp 96.8 F 02/21/23 16:03 Pulse 64 02/21/23 16:03 Resp 18 02/21/23 16:03 BP 168/80 H 02/21/23 16:03 Pulse Ox 97 02/21/23 16:03 O2 Del Method Room Air 02/21/23 16:03 BMI result Body Mass Index 25.8 Const: General: cooperative, healthy appearing and no acute distress O rientation/consciousness: patient oriented x3 Limitations: no limitations HEENT: Head: Yes normal to inspection and Yes atraumatic Ears: hearing grossly normal bilaterally General nose exam: Normal external nose present Face and sinus: Yes normal facial exam Eyes: General: appearance normal, both eyes and all related structures EOM: EOMs intact bilaterally Neck: Neck: Yes normal visual inspection and Yes no meningeal signs Resp: Effort & Inspection: normal respiratory effort and no respiratory distress Cardio: Rate: regular rate Skin: Other: Please refer to image above. Erythematous rash noted to the left antecubital area with crusting/clear drainage. Not circumferential. No fluctuance or induration. Neurovascular intact distally. No pitting edema. No sloughing or mucous membrane involvement. No palm involvement Wounds: no wounds Neuro: General: patient oriented x3, tone normal and no meningeal signs C ranial nerves: Yes CN's II-XII intact bilaterally Gait exam (Neuro): Normal gait present Extrem: General: Yes normal to inspection Medical Decision Making Medical Decision Making MDM Narrative: 77-year-old female with a past medical history of hypertension, HLD, anxiety, presenting to the ED complaining of suspected poison ambreen to left arm x few days after gardening. On Exam vital signs stable, NAD, nontoxic appearing please refer to imaged above. Concern for poison ambreen/poison oak or allergic reaction with possible early cellulitis. Low suspicion for abscess, DVT, septic joint Plan: Topical hydrocortisone, PO Keflex, PCP follow-up Results discussed with patient including worrisome signs and symptoms and strict return precautions, and when to return to the emergency department. They verbalized understanding and feel safe for discharge at this time. Differential Diagnosis Differential Diagnoses: The differential diagnosis associated with the presentation includes As above External Record Review External record reviewed: Inpatient record, Office record, Outpatient record, Prior outpatient labs, Prior outpatient radiology, Primary care record and Outside ED record Tests considered The following testing was considered but not selected: As above Discharge Plan Discharge Clinical Impression: Poison ambreen Patient Disposition: Home, Self-Care Instructions: Poison Ambreen (ED) Additional Instructions: Keflex as an antibiotic please take as prescribed In addition apply topical hydrocortisone which is steroid Take Benadryl and Zyrtec as needed If symptoms persist or worsen return to the ED Prescriptions: New cephalexin 500 mg capsule 500 mg PO QID 7 Days Qty: 28 0RF hydrocortisone [Anti-Itch (HC)] 1 % cream 1 appl topical BID PRN (Reason: itching) Qty: 28.35 0RF No Action citalopram 10 mg tablet 10 mg PO DAILY Qty: 90 3RF gabapentin 300 mg capsule 600 mg PO DAILY Qty: 180 3RF valsartan 160 mg tablet 160 mg PO DAILY Qty: 90 3RF amlodipine 5 mg tablet 5 mg PO DAILY Qty: 90 3RF rosuvastatin 5 mg tablet 5 mg PO Q OTHER DAY Qty: 45 3RF aspirin 81 mg tablet,delayed release (DR/EC) 81 mg PO DAILY probiotic PO coenzyme Q10 [CoQ-10] 100 mg capsule 200 mg PO DAILY Referrals: Charu Santos MD [Primary Care Provider] - 5 days
== END 2023-02-21 16:23 | disposition home or self-care (01) ==
PROVIDERS: Emergency Provider Student in an Organized Health Care Education/Training Program; PCP Internal Medicine
DX: L23.7 Allergic contact dermatitis due to plants, except food (principal); I10 Essential (primary) hypertension; E78.5 Hyperlipidemia, unspecified; Z79.899 Other long term (current) drug therapy; Z79.82 Long term (current) use of aspirin
CPT/HCPCS: 99282; 99283

== ENCOUNTER 2023-03-01 09:11 | Outpatient (AMB) | payer MEDICARE, SELFPAY ==
--- NOTE | 2023-03-01 09:44 | MHC.OFFWIV ---
Intake Vital Signs 03/01/23 09:45 Height 5 ft 7 in Weight 163 lb BMI 25.5 BP 130/60 Blood Pressure Location Lt brachial Position Sitting Pulse 60 Pulse Source Pulse Oximeter Temp 98.1 F Temp Source Temporal Artery Scan Pulse Oximetry (%) 99 Intake Visit Reasons: EP, rash all over body Intake Note: pt is here for c/o rash all over body due to reaction of cephalexin Patient Tobacco Use Status: Never used Tobacco Allergies atorvastatin [Lipitor] Allergy (Intermediate, Verified 03/01/23 09:53) myalgia celecoxib [From CELEBREX] Allergy (Intermediate, Verified 03/01/23 09:53) ITCHING, RASH rosuvastatin [Crestor] Allergy (Intermediate, Verified 03/01/23 09:53) myalagia codeine [Codeine] Allergy (Mild, Verified 03/01/23 09:53) ITCHING, itchy morphine [Morphine] Allergy (Mild, Verified 03/01/23 09:53) ITCHING, itchy meperidine [Demerol] Allergy (Unknown, Verified 03/01/23 09:53) unknown cephalexin Adverse Reaction (Mild, Verified 03/01/23 09:53) Itching Do you need a note to return to daycare/school/sports/work: Yes HPI HPI Comments History of Present Illness Details This is a 77-year-old female who presents to the office today for sick visit. Patient complaining of a diffuse pruritic rash all over her body in the setting of taking cephalexin.Patient states she was given cephalexin for a cellulitis of her left upper extremity approximately 6 days ago. She has taken 5 full days of this antibiotic but started to develop a rash all over her body. She denies any chest tightness, wheezing, shortness of breath, throat swelling, or trouble swallowing. [facility] Medical History Hyperglycemia Postmenopausal Annual physical exam HTN (hypertension) Medial meniscus tear Anxiety Osteoarthritis Osteopenia History of mammogram IBS (irritable bowel syndrome) Hyperlipidemia PMR (polymyalgia rheumatica) Surgical History History of total left knee replacement Hx of cholecystectomy History of carpal tunnel release Hx of hysterectomy S/P lumbar spinal fusion H/O colonoscopy Family History Father Cancer of prostate Mother CAD (coronary artery disease) CHF (congestive heart failure) Hx of CABG Social History Housing: House Alcohol intake: current Alcohol intake frequency: holidays/special occasions only Patient Tobacco Use Status: Never used Tobacco e-Cigarette/Vaping Use: Never Used Current occupational status: retired Cognitive needs: No Hearing needs: No Vision needs: Yes Review of Systems Const All systems reviewed & are unremarkable except as noted in HPI and below Reports no additional complaints Eyes Reports no additional complaints ENT Reports no additional complaints Card Reports no additional complaints Resp Reports no additional complaints GI Reports no additional complaints Reports no additional complaints Musc Reports no additional complaints Skin/Breast Reports system reviewed and no additional complaints, except as documented Neuro Reports no additional complaints Psych Reports no additional complaints Endo Reports no additional complaints Sb/Lymph Reports no additional complaints Aller/Immun Reports no additional complaints Physical Exam Vital Signs: Last Vital Signs Temp 98.1 F 03/01/23 09:45 Pulse 60 03/01/23 09:45 BP 130/60 03/01/23 09:45 Pulse Ox 99 03/01/23 09:45 BMI result Body Mass Index 25.5 Const Other: Vital signs reviewed. Constitutional: Non-toxic appearing. No acute distress. Well-developed and well-nourished. HEENT: Normocephalic and atraumatic. Tympanic membranes without erythema, edema, or bulging bilaterally. External auditory canals without erythema or edema bilaterally. Moist mucous membranes. No pharyngeal erythema or exudates. No throat swelling. No stridor. Skin: Diffuse urticarial rash on patient's bilateral upper extremities, trunk/buttocks, and lower extremities. Neck: Full and painless range of motion. No cervical lymphadenopathy. Cardio: Regular rate and rhythm. No murmurs, gallops, or rubs. No lower extremity edema. No JVD. Pulmonary: No respiratory distress. No accessory muscle usage. Clear to auscultation bilaterally without wheezing, crackles, or rhonchi. Gastrointestinal: Soft, nontender, and nondistended in all 4 quadrants. Normoactive bowel sounds in all 4 quadrants. Genitourinary: No CVA tenderness. Musculoskeletal: Normal range of motion in joints throughout the body. No deformity or other signs of injury. Neuro: Alert and oriented x4. Cranial nerves 2-12 grossly intact. No focal deficits appreciated. Psych: Normal mood and affect. Assessment & Plan Assessment & Plan (1) Urticaria due to drug allergy: Code(s): L50.0 - Allergic urticaria; T50.905A - Adverse effect of unspecified drugs, medicaments and biological substances, initial encounter Plan: This is a 77-year-old female presenting to the office with a diffuse urticarial rash in the setting cephalexin use. Patient is unsure if she has utilized cephalosporins in the past she denies any penicillin allergy. On physical examination, patient has diffuse maculopapular rash with central pallor consistent with urticaria located on her trunk, upper/lower extremities, and buttocks. She has no wheezing, chest tightness, or shortness of breath. History and physical most consistent with urticaria due to medication, no evidence of anaphylaxis or anaphylactic shock this time. Her vital signs are stable, she is overall nontoxic appearing, and her physical exam is otherwise benign. Patient will be sent home on a oral prednisone taper. Recommended antihistamine such as diphenhydramine at nighttime to help with sleeping and pruritis. Patient was advised to proceed directly to the emergency room if she were to develop any anaphylactic symptoms. Patient verbalized understanding and is agreeable with the plan. Medications: New prednisone Take 4 tablets daily x3 days followed by 3 tablets daily x3 days followed by 2 tablets daily x3 days followed by 1 tablet daily x3 days followed by 1/2 tablet daily x2 days. 10 mg PO DIRECTED 31 tabs 0RF Coding Level of Care Code Est Pt Level 3 (03092) Diagnoses Urticaria due to drug allergy L50.0; T50.907A
[2023-03-01 09:45] VITALS: BP 130/60; PULSE 60; TEMP 36.7; O2SAT 99; BMI 25.5
== END 2023-03-01 10:23 | disposition home or self-care (01) ==
PROVIDERS: PCP Internal Medicine; Visit Provider Physician Assistant Medical
DX: L50.0 Allergic urticaria (principal); T50.905A Adverse effect of unspecified drugs, medicaments and biological substances, initial encounter
CPT/HCPCS: 99213

== ENCOUNTER 2023-03-19 13:29 | Outpatient (REF) | payer MEDICARE, SELFPAY ==
[2023-03-19 16:02] LABS: Appearance Urine Cloudy; Color Urine Yellow; Glucose Urine UA Negative (Negative); Leukocyte Esterase Urine Moderate (2+) (Negative); Nitrite Urine Positive (Negative); PH 5.5 (5.0-9.0); UMIC TRIGGER UACC YES; Urine Blood Trace (Negative); Urine Ketones 15 mg/dL (Negative); Urine Protein 30 (1+) mg/dL (Neg-Trace)
[2023-03-19 16:46] LABS: Bacteria Urine 4+ (None Seen); Hyaline Casts Urine 0-2 /LPF (0-2); UACC Culture Trigger YES; WBC Urine >50 /HPF (0-5)
== END 2023-03-19 13:30 | disposition home or self-care (01) ==
LOC: HO.HMGCLDS 13:29
PROVIDERS: PCP Internal Medicine; Visit Provider Internal Medicine
DX: R30.0 Dysuria (principal)
CPT/HCPCS: 81001; 81003; 87086; 87088; 87186

== ENCOUNTER 2023-06-07 07:56 | Outpatient (REF) | payer MEDICARE, SELFPAY ==
[2023-06-07 11:47] LABS: MANUAL DIFF FLAG NO
[2023-06-07 11:57] LABS: Basophils Percent Auto 0.5 % (0-2); Eosinophils Absolute Auto 0.3 X10*3/uL (0.0-0.4); Eosinophils Percent Auto 5.4 % (0-4); Hematocrit 37.1 % (37.0-47.0); Hemoglobin 12.2 g/dl (12.0-16.0); Imm Gran Abs Auto 0.01 X10*3/uL (0.00-0.03); Imm Gran Pct Auto 0.2 % (0.0-0.4); Lymphocytes Absolute Auto 2.6 X10*3/uL (1.2-4.9); Mean Corpuscular HGB Conc 32.9 g/dl (31.0-35.0); Mean Corpuscular Hemoglobin 29.5 pg (27.0-33.0); Mean Corpuscular Volume 89.8 fL (80.0-98.0); Mean Platelet Volume 9.6 fL (9.4-12.3); Monocytes Absolute Auto 0.4 X10*3/uL (0.1-1.2); Monocytes Percent Auto 6.1 % (2-11); Neutrophils Absolute Auto 2.4 x10*3/uL (2.0-8.3); Neutrophils Percent Auto 41.8 % (45-73); Platelet Count 215 X10*3/uL (160-400); Red Blood Count 4.13 X10*6/uL (4.20-5.50); Red Cell Distribution Width 13.2 % (11.0-16.0); White Blood Count 5.7 X10*3/uL (4.8-10.8)
[2023-06-07 12:01] LABS: Estimated Average Glucose 108 mg/dL; Hemoglobin A1c % 5.4 % (<6.0)
[2023-06-07 12:20] LABS: Alanine Aminotransferase 23 U/L (0-31); Albumin Level 4.1 g/dL (3.5-5.0); Alkaline Phosphatase 71 U/L (39-117); Anion Gap 11 (12-20); Aspartate Amino Transferase 18 U/L (5-31); Blood Urea Nitrogen 15 mg/dL (9-16); Calcium 9.1 mg/dL (8.4-10.2); Carbon Dioxide 25 mmol/L (22-29); Chloride 109 mmol/L (96-108); Cholesterol 205 mg/dL (<200); Estimated Glomerular Filt Rate > 60; Glucose Fasting 94 mg/dL (60-99); HDL Cholesterol 102 mg/dL (>40); LDL Cholesterol Calculated 75 mg/dL (<100); Potassium 4.1 mmol/L (3.3-5.1); Sodium 141 mmol/L (135-145); Total Protein 6.3 g/dL (6.5-8.0); Triglycerides 143 mg/dL (<150)
== END 2023-06-07 07:57 | disposition home or self-care (01) ==
LOC: HO.HMGCLDS 07:56
PROVIDERS: PCP Internal Medicine; Visit Provider Internal Medicine
DX: R73.9 Hyperglycemia, unspecified (principal); I10 Essential (primary) hypertension; E78.5 Hyperlipidemia, unspecified
CPT/HCPCS: 36415; 80053; 80061; 83036; 85025

== ENCOUNTER 2023-06-10 08:53 | Outpatient (AMB) | payer MEDICARE, SELFPAY ==
--- NOTE | 2023-06-10 09:29 | A.OFFPC_ITS ---
Vital Signs 06/10/23 09:33 Height 5 ft 7 in Weight 162 lb BMI 25.4 BP 118/62 Blood Pressure Location Rt brachial Position Sitting Pulse 63 Pulse Source Pulse Oximeter Pulse Oximetry (%) 99 Oxygen Delivery Method Room Air Intake Visit Reasons: PE Intake Note: Pt is here today for PE. Allergies atorvastatin [Lipitor] Allergy (Intermediate, Verified 06/10/23 09:35) myalgia celecoxib [From CELEBREX] Allergy (Intermediate, Verified 06/10/23 09:35) ITCHING, RASH rosuvastatin [Crestor] Allergy (Intermediate, Verified 06/10/23 09:35) myalagia codeine [Codeine] Allergy (Mild, Verified 06/10/23 09:35) ITCHING, itchy morphine [Morphine] Allergy (Mild, Verified 06/10/23 09:35) ITCHING, itchy meperidine [Demerol] Allergy (Unknown, Verified 06/10/23 09:35) unknown cephalexin Adverse Reaction (Mild, Verified 06/10/23 09:35) Itching Medication List - Last Reconciled 06/10/23 by Charu Santos MD amlodipine 5 mg PO DAILY aspirin 81 mg PO DAILY citalopram 10 mg PO DAILY coenzyme Q10 (CoQ-10) 200 mg PO DAILY gabapentin 600 mg (2 x 300 mg) PO DAILY hydrocortisone 1% (Anti-Itch (hydrocortisone)) 1 appl topical BID PRN [probiotic PO] rosuvastatin 5 mg PO Q OTHER DAY valsartan 160 mg PO DAILY Tobacco use date assessed: 06/10/23 Fall risk assessment: No Falls in past year Last assessed Fall Risk: 06/10/23 Dental Screening Dental Screen Date: 06/10/23 Did you have a dental visit in the last 12 months?: Yes Did you have a dental problem in the last 6 months where you did not have access to dental care?: No Was dental information given to patient?: Patient has dentist HPI PE HPI Details Pt presents for PE. Pt c/o R flank pain for 2 months. Patient had mult iple treatment with chiropractor without significant relief. The pain is worse when moving in bed, getting up from the chair. Patient denies pain radiating to lower extremities, weakness or numbness in extremities, change in bladder or bowel function, fever, chills nausea vomiting hematuria or dysuria. [facility] Medical History Hyperglycemia Postmenopausal Annual physical exam HTN (hypertension) Medial meniscus tear Anxiety Osteoarthritis Osteopenia History of mammogram IBS (irritable bowel syndrome) Hyperlipidemia PMR (polymyalgia rheumatica) Surgical History History of total left knee replacement Hx of cholecystectomy History of carpal tunnel release Hx of hysterectomy S/P lumbar spinal fusion H/O colonoscopy Family History Father Cancer of prostate Mother CAD (coronary artery disease) CHF (congestive heart failure) Hx of CABG Mental health disorder Social History Housing: House Alcohol intake: current Alcohol intake frequency: holidays/special occasions only Patient Tobacco Use Status: Never used Tobacco e-Cigarette/Vaping Use: Never Used Current occupational status: retired Cognitive needs: No Hearing needs: No Vision needs: Yes Questionnaire Thrive Questionnaire Date Thrive assessed: 06/07/22 AUDIT C Alcohol Use Questionnaire (AUDIT-C) 1. How often do you have a drink containing alcohol?: 4 or more times a week 2. How many drinks containing alcohol do you have on a typical day when you are drinking?: 1 or 2 3. How often do you have six or more drinks on one occasion?: Never Total Score: 4 RODRIGUE-7 AMB Questionnaire RODRIGUE-7 Date RODRIGUE - 7 assessed: 06/07/22 Feeling nervous, anxious, or on edge: 0 = Not at all Not being able to stop or control worryin = Not at all Worrying too much about different things: 0 = Not at all Trouble relaxin = Not at all Being so restless that it is hard to sit still: 0 = Not at all Becoming easily annoyed or irritable: 0 = Not at all Feeling afraid as if something awful might happen: 0 = Not at all Total RODRIGUE-7 score (0-4 normal; 5-9 mild; 10-14 moderate; 15-21 severe): 0 Source: Developed by Drs. Jan Phan, Corrine Vinson, Conner Huddleston and colleagues, with an educational candido from [employer]. Review of Systems Const All systems reviewed & are unremarkable except as noted in HPI and below Reports no additional complaints Eyes Reports no additional complaints ENT Reports no additional complaints Card Reports no additional complaints Resp Reports no additional complaints GI Reports no additional complaints Reports no additional complaints Physical exam (Primary Care) Vital Signs: Last Vital Signs Pulse 63 06/10/23 09:33 BP 118/62 06/10/23 09:33 Pulse Ox 99 06/10/23 09:33 Oxygen Delivery Method Room Air 06/10/23 09:33 BMI result Body Mass Index 25.4 Tobacco/Smoking Status: Tobacco use Status Tobacco use date assessed 06/10/23 06/10/23 09:40 Patient Tobacco Use Status Never used Tobacco 06/10/23 09:40 e-Cigarette/Vaping Use Never Used 06/10/23 09:29 Thrive Assessment: Date of Thrive Assessment Date Thrive assessed 06/07/22 06/10/23 09:29 Const General: no acute distress HENMT Head: Yes normal to inspection Ears: hearing grossly normal bilaterally Face and sinus: Yes normal facial exam Mouth: Normal oral and palatal mucosa present Eyes General: appearance normal, both eyes and all related structures Resp Effort & Inspection: normal respiratory effort Auscultation: clear to auscultation bilaterally Cardio Rhythm: regular rhythm Heart sounds: S1 normal heart sound present and S2 normal heart sound present GI Inspection: Yes normal to inspection Palpation (GI): Soft to palpation Percussion: Yes normal to percussion Auscultation: normal bowel sounds Back/Spine/Pelvis Other: This reproducible tenderness over right paraspinal lower lumbar region, straight leg rising 90 degrees bilaterally, there is slightly decreased range of motion right hip compared to left hip, there is no flank tenderness Assessment and Plan Assessment & Plan (1) Right flank pain: Code(s): R10.9 - Unspecified abdominal pain Plan: Obtain renal ultrasound check UA and obtain a x-ray of lumbar spine to evaluate. Patient declined referral to physical therapy. She will start regular lower back exercises (2) Chronic lower back pain: Code(s): M54.50 - Low back pain, unspecified; G89.29 - Other chronic pain Plan: Start lower back exercise (3) Hyperglycemia: Code(s): R73.9 - Hyperglycemia, unspecified Plan: A1c is 5.3, continue ADA diet (4) Annual physical exam: Code(s): Z00.00 - Encounter for general adult medical examination without abnormal findings Plan: Well-balanced diet regular physical activity discussed with the patient. She is up-to-date with mammogram colonoscopy (5) Hypertension: Code(s): I10 - Essential (primary) hypertension Qualifiers: Hypertension type: essential hypertension Qualified Code(s): I10 - Essential (primary) hypertension Plan: Continue current medications follow-up in 6 months (6) Hyperlipidemia: Code(s): E78.5 - Hyperlipidemia, unspecified Plan: Continue statin Orders: Orders US renal BI Today R10.9 - Unspecified abdominal pain Lipid Panel 6 Months E78.5 - Hyperlipidemia, unspecified, I10 - Essential (primary) hypertension, R73.9 - Hyperglycemia, unspecified, Z00.00 - Encounter for general adult medical examination without abnormal findings UA w Microscopic Today R10.9 - Unspecified abdominal pain XR lumbar spine 2-3V Today G89.29 - Other chronic pain, M54.50 - Low back pain, unspecified Comprehensive [place]. Panel Fast 6 Months E78.5 - Hyperlipidemia, unspecified, I10 - Essential (primary) hypertension, R73.9 - Hyperglycemia, unspecified, Z00.00 - Encounter for general adult medical examination without abnormal findings Hemoglobin A1c 6 Months E78.5 - Hyperlipidemia, unspecified, I10 - Essential (primary) hypertension, R73.9 - Hyperglycemia, unspecified, Z00.00 - Encounter for general adult medical examination without abnormal findings Complete Blood Count Auto Diff 6 Months E78.5 - Hyperlipidemia, unspecified, I10 - Essential (primary) hypertension, R73.9 - Hyperglycemia, unspecified, Z00.00 - Encounter for general adult medical examination without abnormal findings Coding Level of Care Code Est Pt Prev Care >65y(20020) Diagnoses Right flank pain R10.9 Chronic lower back pain M54.50; G89.29 Hyperglycemia R73.9 Annual physical exam Z00.00 Essential hypertension I10 Hypertension type: essential hypertension Hyperlipidemia E78.5
[2023-06-10 09:33] VITALS: BP 118/62; PULSE 63; O2SAT 99; BMI 25.4
== END 2023-06-10 10:40 | disposition home or self-care (01) ==
PROVIDERS: PCP Internal Medicine; Visit Provider Internal Medicine
DX: R10.9 Unspecified abdominal pain (principal); M54.50 Low back pain, unspecified; G89.29 Other chronic pain; R73.9 Hyperglycemia, unspecified; Z00.00 Encounter for general adult medical examination without abnormal findings; I10 Essential (primary) hypertension; E78.5 Hyperlipidemia, unspecified
CPT/HCPCS: 99397

== ENCOUNTER 2023-06-10 10:30 | Outpatient (REF) | payer MEDICARE, SELFPAY ==
--- NOTE | ~2023-06-10 | XR_ITS ---
EXAMINATION: XR LUMBOSACRAL SPINE CLINICAL INFORMATION: Low back pain COMPARISON: None available. TECHNIQUE: Three views of the lumbosacral spine. FINDINGS: The visualized lumbar vertebrae are intact with mild L3-L4 dextroscoliosis. Intervertebral disc spaces are markedly reduced. Posterior L4-S1 spinal fixation with transpedicular screws and vertical bars is seen. Surgical clips are seen in medial right upper abdomen. XR/XR lumbar spine 2-3V IMPRESSION: 1. Mild L3-L4 dextroscoliosis. 2. L4-S1 posterior spinal fixation with intact hardware. 3. Multilevel advanced degenerative lumbar disc disease. 4. No acute fracture. 5. Status post cholecystectomy.
[2023-06-10 13:04] LABS: Appearance Urine Cloudy; Color Urine Yellow; Glucose Urine UA Negative (Negative); Leukocyte Esterase Urine Moderate (2+) (Negative); Nitrite Urine Negative (Negative); UMIC TRIGGER UA YES; Urine Blood Negative (Negative); Urine Ketones Negative (Negative); Urine Protein Negative (Neg-Trace)
[2023-06-10 13:10] LABS: Bacteria Urine Trace (None Seen); Hyaline Casts Urine 0-2 /LPF (0-2); RBC Urine 0-2 /HPF (0-2); Squamous Epithelial Cell Urine >20 /HPF (0-2)
== END 2023-06-10 10:31 | disposition home or self-care (01) ==
LOC: HO.HMGCX 10:30
PROVIDERS: PCP Internal Medicine; Visit Provider Internal Medicine
DX: M54.50 Low back pain, unspecified (principal); G89.29 Other chronic pain; R10.9 Unspecified abdominal pain
CPT/HCPCS: 72100; 81001

== ENCOUNTER 2023-06-12 13:28 | Outpatient (REF) | payer MEDICARE, SELFPAY ==
[2023-06-12 16:04] LABS: Appearance Urine Turbid; Color Urine Yellow; Glucose Urine UA Negative (Negative); Leukocyte Esterase Urine Negative (Negative); Nitrite Urine Negative (Negative); PH 5.5 (5.0-9.0); Specific Gravity - Urine 1.025 (1.005-1.025); Urine Blood Negative (Negative); Urine Ketones Trace mg/dL (Negative); Urine Protein Negative (Neg-Trace)
[2023-06-12 16:12] LABS: Bacteria Urine None Seen (None Seen); Calcium Oxalate Crystals Urine Present; Hyaline Casts Urine 0-2 /LPF (0-2); RBC Urine 0-2 /HPF (0-2); Squamous Epithelial Cell Urine 0-2 /HPF (0-2); WBC Urine 0-5 /HPF (0-5)
== END 2023-06-12 13:29 | disposition home or self-care (01) ==
LOC: HO.HMGCLDS 13:28
PROVIDERS: PCP Internal Medicine; Visit Provider Internal Medicine
DX: R82.71 Bacteriuria (principal)
CPT/HCPCS: 81001; 87086

== ENCOUNTER 2023-06-14 12:48 | Outpatient (REF) | payer MEDICARE, SELFPAY ==
--- NOTE | ~2023-06-14 | US_ITS ---
EXAMINATION: US RETROPERITONEAL LIMITED (RENAL ONLY) CLINICAL INFORMATION: Unspecified abdominal pain. Right flank pain. COMPARISON: MRI abdomen, ultrasound abdomen limited and CT abdomen and pelvis 03/07/2022. TECHNIQUE: Real-time imaging of the kidneys. FINDINGS: RIGHT KIDNEY: 11.7 x 5.8 x 5.4 cm (SAG x AP x TRV). The kidney is normal in size, contour, and echogenicity. Renal cortical thickness is normal. No renal calculi or hydronephrosis. Benign-appearing renal cysts measuring up to 7.3 cm. No follow-up imaging is recommended. LEFT KIDNEY: 12.6 x 6.0 x 5.0 cm (SAG x AP x TRV). The kidney is normal in size, contour, and echogenicity. Renal cortical thickness is normal. No renal calculi or hydronephrosis. Benign-appearing renal cyst measuring 2.2 cm. No follow up imaging is recommended. US/US renal BI IMPRESSION: No hydronephrosis or nephrolithiasis.
== END 2023-06-14 12:49 | disposition home or self-care (01) ==
LOC: HO.HMGCX 12:48
PROVIDERS: PCP Internal Medicine; Visit Provider Internal Medicine
DX: R10.9 Unspecified abdominal pain (principal)
CPT/HCPCS: 76775

== ENCOUNTER 2023-12-09 11:07 | Outpatient (AMB) | payer MEDICARE, SELFPAY ==
--- NOTE | 2023-12-09 12:07 | AM.OFFWIN_ITS ---
Intake Vital Signs 12/09/23 12:14 Height 5 ft 7 in Weight 73.482 kg BMI 25.4 BP 122/78 Blood Pressure Location Rt brachial Position Sitting Pulse 66 Pulse Source Pulse Oximeter Temp 98 F Temp Source Oral Pulse Oximetry (%) 97 Intake Visit Reasons: EP Poison Ambreen Intake Note: pt is here for posion ambreen on hands and back/butt area Patient Tobacco Use Status: Never used Tobacco Allergies atorvastatin [Lipitor] Allergy (Intermediate, Verified 12/09/23 12:15) myalgia celecoxib [From CELEBREX] Allergy (Intermediate, Verified 12/09/23 12:15) ITCHING, RASH rosuvastatin [Crestor] Allergy (Intermediate, Verified 12/09/23 12:15) myalagia codeine [Codeine] Allergy (Mild, Verified 12/09/23 12:15) ITCHING, itchy morphine [Morphine] Allergy (Mild, Verified 12/09/23 12:15) ITCHING, itchy meperidine [Demerol] Allergy (Unknown, Verified 12/09/23 12:15) unknown cephalexin Adverse Reaction (Mild, Verified 12/09/23 12:15) Itching Do you need a note to return to daycare/school/sports/work: No HPI EP Poison Ambreen HPI Details Patient presents with ongoing poison ambreen on her bilateral hands, forearms and low back area. She notes she gets this annually she often [place] in her yard and there is known areas of poison ambreen. She has been using OTC antihistamine both topically and orally with some relief. She has been successfully treated with short courses of prednisone in the past when the rash becomes more widespread like it is now. Denies facial or eye involvement, oozing or bleeding rash. ON LICENSE OF [facility] Medical History Hyperglycemia Postmenopausal Annual physical exam HTN (hypertension) Medial meniscus tear Anxiety Osteoarthritis Osteopenia History of mammogram IBS (irritable bowel syndrome) Hyperlipidemia PMR (polymyalgia rheumatica) Surgical History History of total left knee replacement Hx of cholecystectomy History of carpal tunnel release Hx of hysterectomy S/P lumbar spinal fusion H/O colonoscopy Family History Father Cancer of prostate Mother CAD (coronary artery disease) CHF (congestive heart failure) Hx of CABG Mental health disorder Social History Housing: House Alcohol intake: current Alcohol intake frequency: holidays/special occasions only Patient Tobacco Use Status: Never used Tobacco e-Cigarette/Vaping Use: Never Used Current occupational status: retired Cognitive needs: No Hearing needs: No Vision needs: Yes Review of Systems Const Reports as per HPI and Reports no additional complaints Eyes Reports no additional complaints ENT Reports no additional complaints and Reports as per HPI Card Reports as per HPI and Reports no additional complaints Resp Reports as per HPI and Reports no additional complaints Skin/Breast Denies lesions Physical Exam Vital Signs: Last Vital Signs Temp 98 F 12/09/23 12:14 Pulse 66 12/09/23 12:14 BP 122/78 12/09/23 12:14 Pulse Ox 97 12/09/23 12:14 BMI result Body Mass Index 25.4 Const General: cooperative, comfortable and no acute distress Orientation/consciousness: patient oriented x3 Resp Effort & Inspection: normal respiratory effort Auscultation: clear to auscultation bilaterally Cardio Rate: regular rate Rhythm: regular rhythm Heart sounds: S1 normal heart sound present and S2 normal heart sound present Skin Rashes: rashes noted Bilateral forearms other (Healing maculopapular feel a rash consistent with plant contact dermatitis), Bilateral posterior flank other (Excoriated rash consistent with plan to contact dermatitis no signs of infection) Neuro General: patient oriented x3 Assessment & Plan Assessment & Plan (1) Plant irritant contact dermatitis: Code(s): L24.7 - Irritant contact dermatitis due to plants, except food Plan: Rx short course of prednisone. Take with food return to clinic if symptoms do not resolve or worsen in any way. Continue to attempt to avoid plant contact. Medications: New prednisone 2 tabs daily x 4 days, then 1 tab daily days 5-8 20 mg PO DAILY 8 days 12 tabs 0RF Coding Level of Care Code Est Pt Level 2 (15408) Diagnoses Plant irritant contact dermatitis L24.7
[2023-12-09 12:14] VITALS: BP 122/78; PULSE 66; TEMP 36.6; O2SAT 97; BMI 25.4
== END 2023-12-09 12:25 | disposition home or self-care (01) ==
PROVIDERS: PCP Internal Medicine; Visit Provider Physician Assistant
DX: L24.7 Irritant contact dermatitis due to plants, except food (principal)
CPT/HCPCS: 99212

== ENCOUNTER 2024-06-19 09:24 | Outpatient (REF) | payer MEDICARE, SELFPAY ==
--- OUTSIDE RECORDS SUMMARY | 2024-06-19 09:49 | XMS_ITS | Data Portability ---
Author Organization PAUL - Joshua Lutz Mosil[facility], [facility] Address [address] [place] [address] Assessment Encounter Date Assessment Date Assessment LastModified by Organization Details LastModified Time 09/11/2023 09/11/2023 78-year-old female with low back pain and radiating hip thigh pain right. 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 Fusion appears solid. Need a CT scan to evaluate for structural lesion and possible operative lesion. Will arrange and follow-up thereafter. Sulindac prescribed. Sulindac. Medication started, risks and benefits discussed, side effects and interactions reviewed. 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 Certainly no role for aggressive care. Patient reassured in this regard. Natural history reviewed and questions answered. Follow-up to be arranged. CT scan lumbar. Imaging independently reviewed in the office today with findings discussed and all questions answered. Not available 10/18/2023 16:17:53 Plan of Treatment Reminders Order Date Submit Date Provider Last Modified By Organization Details Last Modified Time Details Appointments None recorded. Lab None recorded. Referral None recorded. Procedures None recorded. Surgeries None recorded. Imaging XR, lumbosacral spine - 320 new pt l-spine 2v 2023 024 [facility], [address], [address], [place], [address], 10:04:54 Medication Orders sulindac 150 mg tablet [address] [facility] [address], [address] [place], [address], 4 12:38:08 sulindac 150 mg tablet [address] [facility] [address], [address] [place], [address], 4 12:38:08 Patient TargetsNo targets recorded. Patient InstructionsNo instructions recorded. Reason for Referral None Reported. Results Created Date Observation Date Name Description Value Unit Range Abnormal Flag Note LastModifiedBy Organization Detail LastModifiedTime 10/12/19 24 10/10/2023 CT, lumba r spine , w/o contr ast No observ ation record ed. MANISTEE [facility] [address] [address], [place], [address], 10/29/2023 16:07:02 01/04/20 24 12/18/2018 imagi ng/di agnos tic resul t No observ ation record ed. [email or web address] Not Available 12/06 02:45:16 01/04/20 24 05/30/2020 imagi ng/di agnos tic resul t No observ ation record ed. [email or web address] Not Available 12/06 02:45:18 01/04/20 24 06/19/2021 imagi ng/di agnos tic resul t No observ ation record ed. [email or web address] Not Available 12/06 02:45:47 Result Notes None recorded. Problems Name Problem SNOMED Code Status Onset Date Resolution Date Notes Provider Name and Address Organization Details Recorded Time History of major orthopedic surgery 939890333 Active 2021 Status: 'A'; Not Available [facility] 4 10:57:14 Tear of medial meniscus of knee 855457950 Active 2018 Problem Code: S83.232D ; Problem Code Type: ICD-10; Status: 'A'; Not Available [facility] 4 10:57:14 Low back pain 779365225 Active 2023 BRISSA carlton, [facility] 4 17:02:21 Problem Notes None recorded. Procedures Surgical History Date Name Laterality Status Provider Name and Address Organization Details Recorded Time 5 [facility] Hand Inj completed Gallo Rene MD [address], [place], [address], [facility] 06/05/2024 07:51:03 4 [facility] Wrist Tendon Inj completed Gallo Reen MD [address], [place], [address], [facility] 01/24/2024 11:29:26 Imaging Results Imaging Date Name Status LastModified by Organiz ation Details LastModified Time 10/10/2023 CT, lumbar spine, w/o contrast completed JOE [facility] [address] [facility] [address], [place], [address], 10/29/2023 16:07:02 12/18/2018 imaging/diagn ostic result completed Information not available 01/04/2024 02:45:16 05/30/2020 imaging/diagn ostic result completed Information not available 01/04/2024 02:45:18 06/19/2021 imaging/diagn ostic result completed Information not available 01/04/2024 02:45:47 Procedure Notes None recorded. Medical Equipment None Reported. Allergies Allergen ID Allergen Name Allergen Category Reaction Reaction Severity Criticality Documentation Date Start Date Code Code System Note Provider Name and Address Organization Details Recorded Time 15766 codeine medicatio n Not available Not available Not available 07/08/20232016 2670 RxNorm Aller gyRea ction : 'Skin React ion'; Not Available [facility] 4 11:09:49 83002 Demerol medicatio n Not available Not available Not available 07/08/20232016 36458 1 RxNorm Aller gyRea ction : 'Skin React ion'; Not Available [facility] 4 11:09:49 90066 Celebrex medicatio n Not available Not available Not available 07/08/20232016 56149 7 RxNorm Aller gyRea ction : 'Skin React ion'; Not Available [facility] 4 11:09:50 60387 morphine sulfate medicatio n Not available Not available Not available 07/08/20232018 93765 RxNorm Not Available [facility] 4 11:09:50 Medications Name Sig Start Date Stop Date Status Note LastModified by Organization Details LastModified Time amoxicillin 500 mg capsule active Not Available Not Availab le Not Available prednisone 10 mg tablet active Not Available Not Available No t Available citalopram 10 mg tablet active Not Available Not Available No t Available prednisone 20 mg tablet active Not Available Not Available No t Available sulindac 150 mg tablet Take 1 tablet twice a day by oral route for 30 days, for 60. active Not Available Not Available No t Available amlodipine 5 mg tablet active Not Available Not Available No t Available sulfamethoxazo le 800 mg-trimethopri m 160 mg tablet active Not Available Not Available Not Available cephalexin 500 mg capsule active Not Available Not Available N ot Available gabapentin 300 mg capsule active Not Available Not Available N ot Available levofloxacin 500 mg tablet active Not Available Not Availabl e Not Available valsartan 160 mg tablet active Not Available Not Available No t Available rosuvastatin 5 mg tablet active Not Available Not Available No t Available nitrofurantoin monohydrate/ma crocrystals 100 mg capsule active Not Available Not Availab le Not Available oxycodone HCl-oxycodone- ASA as directed 1TABLETS EVERY 6 HOURS PRN PAIN 2018 active Statu s: 'Curr ent'; Not Available Not Available Not Available Vitals Date Recorded Body height Body mass index (BMI) Body weight Provider Name and Address Organization Details Last Updated DateTime 09/11/2023 167.64 cm 25 kg/m2 97080.82 g RUBY FERRELL [facility] 09/11/2023 12:08:44 Date Recorded Body height Body mass index (BMI) Body weight Provider Name and Address Organization Details Last Updated DateTime 10/18/2023 167.64 cm 25 kg/m2 41289.82 g SHAREE ACOSTA [facility] 10/18/2023 14:40:02 Date Recorded Body height Body mass index (BMI) Body weight Provider Name and Address Organization Details Last Updated DateTime 01/24/2024 167.64 cm 25 kg/m2 22838.82 g TRINIDAD LANDRY [facility] 01/24/2024 09:29:41 Date Recorded Body height Body mass index (BMI) Body weight Provider Name and Address Organization Details Last Updated DateTime 06/03/2024 167.64 cm 25 kg/m2 65768.82 g TRINIDAD LANDRY [facility] 06/03/2024 09:33:50 Social History None recorded. Functional Status None recorded. Mental Status None recorded. Family History Nothing Reported. Medical History No medical history recorded. Gynecological HistoryNo gynecological history recorded. Obstetrics History GPAL:G 0 P 0 0 0 0 Past Encounters Encounter ID Performer Location Encounter Start Date Encounter Closed Date Diagnosis/Indication Diagnosis SNOMED-CT Code Diagnosis ICD10 Code Diagnosis Note [id number] Jan Warren MD [facility] [address] [place] [address] 09/11/2023 10:02:22 10/04/2023 10:04:54 Low back pain 812153468 M54.50 [id number] Jan Warren MD [facility] [address] [place] [address] 10/18/2023 14:22:19 11/21/2023 16:54:09 Low back pain 047480567 M54.50 [id number] MD [facility] [address] [place] [address] 01/24/2024 09:10:14 02/14/2024 15:44:06 Tenosynovitis of left radial styloid 1879642472 4906577 M65.4 [id number] Gallo Rene MD [facility] [address] [place] [address] 06/03/2024 09:24:39 06/05/2024 07:51:30 Arthritis of first carpometacarpal joint of right hand 4458118428 571486 M18.11 Health Concerns Section Related Observation LastModified by Organization Detai ls LastModified Time None Recorded Concern Status LastModified by Organization Details LastModified Time None Recorded Advance Directives Directive None Recorded Payers Encounter Date Sequence Insurance Name Policy Number Policy Forte Covered Member ID Forte Member ID Guarantor Name 09/11/2023 1 [facility] [id number] Luzma Mattson [id number] Luzma Torres Mattson 10/18/2023 1 [facility] [id number] Luzma Mattson [id number] Luzma Torres Srinivasan 01/24/2024 1 [facility] [id number] Luzma Mattson [id number] Luzma Torres Srinivasan 06/03/2024 1 [facility] [id number] Luzma Mattson [id number] Luzma Torres Mattson Notes Date Note Type Note Provider Name and Address Organization Details Recorded Time 09/11/2023 text/html HPI: 78-year-old female with low back pain over the last 5 months. Right-sided. Excruciating but not constant. Awakens her at night. Worse with standing. Balance off. No bowel or bladder complaints are described. PFMSH and ROS has been reviewed, updated and is located in the patient? ? ?s chart. TREATMENT: Previous surgery 20 years ago fusion L4 to the sacrum did well. 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 AP and lateral lumbar spine films obtained in the office today notable for solid fusion extending from your L4 to the sacrum. Advanced degenerative findings with listhesis at L3-4 and L2-3 Jan Warren MD [address] [place] [address] [address], [place], [address], [facility] 09/11/2023 12:29:15 10/18/2023 text/html HPI: 78-year-old female followed for back and radiating leg pain returns for recheck. Last visit we started her on sulindac. Fortunately this medication has been helpful. Her low back is better. She has a CT scan confirming moderate stenosis at the L3-4 level above her previous fusion L4 to the sacrum. WORK STATUS: Not working PFMSH and ROS has been reviewed, updated, and is located in the patient's chart RADIOGRAPHS: Not indicated. CT scan reviewed. She has moderate degenerative findings above her fusion consistent with a mild transitional syndrome. PHYSICAL EXAMINATION: Jan Warren MD [address], [place], [address], [facility] 10/18/2023 16:18:17 01/24/2024 text/html Diagnosis: 1. De Quervain's tenosynovitis left wrist2. Left first CMC arthritis3. Flexor tenosynovitis right ring and small fingers and left index finger resolved4. Early Dupuytren's diseaseThe patient presents at her request. She has redeveloped pain over the radial aspect of her left wrist. The pain is sharp in a 5/10 in severity.Past family, medical, social history and review of systems has been reviewed, updated and is located in the patient? s chart.Examination: Healthy appearing patient in no apparent distress. Alert and oriented. Swelling radial aspect left wrist. Tender to palpation over left first dorsal compartment. Decreased left wrist range of motion compared to the right. Provocative testing the right wrist reveals no instability. Provocative testing left wrist reveals a positive Tricia's test. The patient has pain with resisted left thumb extension. No atrophy in either upper extremity. Brisk capillary refill in all digitsPlan: I described to the patient the nature de Quervain's tenosynovitis or treatment options. She would like to proceed with a corticosteroid injection. We discussed the potential concerns of depigmentation of her skin and subcutaneous fat atrophy. After sterile preparation of the area, the left first dorsal compartment was injected with 6 mg of Celestone. She tolerated the injection well. She will follow up with me by phone in 1 month. Gallo Rene MD [address], [place], [address], [facility] 01/24/2024 11:29:57 06/03/2024 text/html Diagnosis: Right first CMC arthritis 78-year-old female who presents with pain at the base of her right thumb. The pain is sharp and occurs with grasp and pinch. She rates as a 5 out of 10 in severity. She has no numbness or tingling. Past family, medical, social history and review of systems has been reviewed, updated and is located in the patient? s chart. Examination: Healthy appearing patient in no apparent distress. Alert and oriented. She has symmetric range of motion of her bilateral wrist and digits. Provocative testing of her right wrist reveals a positive first CMC grind and compression test. Provocative testing of her left wrist reveals no instability. No atrophy in either upper extremity. Brisk capillary refill in all digits Plan: I described for the patient nature for CMC arthritis and her treatment options. I strongly recommended a course of nonsteroidal anti-inflammatory medication and splinting. The patient much preferred corticosteroid injection therapy. She tolerated her injection well. Gallo Rene MD [address] [place] [address] [address], [place], [address], [facility] 06/05/2024 07:51:29 OBGyn Episode No OBEpisode recorded.
--- OUTSIDE RECORDS SUMMARY | 2024-06-19 09:49 | XMS_ITS | Patient Health Record ---
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 Name Role Phone Charu Santos MD Primary Care Provider Jose Quintero Jr Unavailable [phone] ALLERGIES Allergen (clinical drug ingredient) Drug/Non Drug Allergy documented on EMR Reaction Allergy Type Onset Date Status morphine Morphine Sulfate Unknown Drug Allergy Active meperidine Demerol Unknown Drug Allergy Active Codeine Phosphate Unknown Drug Allergy Active celecoxib Celebrex Unknown Drug Allergy Active REASON FOR REFERRAL No Information MEDICATIONS Medication SIG (Take, Route, Frequency, Duration) Notes Start Date End Date Status Gabapentin 300 MG 1 tablet Orally Once a day Active Dicyclomine HCl 20 MG Orally PRN Active immodium Active Dicyclomine HCl 20 MG 1 tablet Orally 2- 4 times a day 11/30/2021 Active Citalopram Hydrobromide 5 1 tablet Orally hs Active Diovan 160 MG 1 tablet Orally Once a day Active Melatonin ER 10 MG as directed Orally HS Active Aspirin 81 MG 1 tablet Orally Once a day Active Vitamin B12 100 MCG as directed Orally Active Probiotic - as directed Orally o nce a day Active Niacin CR Active CoQ-10 100 MG 2 capsule with a misha l Orally Once a day Active Valerian Root 2 capsule before bed time as needed HS Active Furosemide 20 mg 1 tab Oral am Active NexIUM 40 MG 1 capsule Orally Onc e a day for 30 days 11/15/2020 Active amLODIPine Besylate 5 MG 1 tablet Orally Once a day Active MiraLax (colon prep) 8.3 ounce ((238) grams mixed with Gatorade or Crystal Light orally begin at 5:00 p.m. the day before the procedure for 1 day 08/17/2020 Active Crestor 5 MG 1 tablet Orally HS 3 TIMES A WEEK Active Readi-Cat 2 2.1 % as directed Orally 11/17/2020 Active IMMUNIZATIONS Vaccine Route Administration Date Status Comme nts Influenza Unknown 03/18/2018 Administered Influenza Unknown 02/17/2020 Administered SOCIAL HISTORY Sex Assigned At : Social History Observation Description Sex Assigned At Unknown PROBLEMS Problem Type ICD Code Onset Dates Problem Status W/U Status Risk SNOMED Code Notes Problem Colon cancer screening (Z12.11) Active confirmed 565935433 Problem Epigastric pain (R10.13) Active confirmed 48670242 Problem Irritable bowel syndrome with diarrhea (K58.0) Active confirmed 170053854 Problem Elevated LFTs (R79.89) Active confirmed 490591975 PLAN OF TREATMENT Pending Test Test Name Order Date BUN 11/15/2020 CREATININE 11/15/2020 LIVER PROFILE 11/15/2020 LIVER PROFILE 03/08/2022 LIPASE 11/15/2020 CBC w/o DIFF 11/15/2020 CBC w/o DIFF 03/08/2022 CT ABD & PELVIS WITH CONTRAST 11/15/2020 CT ABD & PELVIS WITH PO CONT ONLY 2013 Future Test Test Name Order Date COLONOSCOPY 08/17/2020 Insurance Providers Payer Name Payer Address Payer Phone Subscriber Number Group Number Insured Name Patient Relationship to Insured Coverage Start Date Coverage End Date [facility] [address] [place] [phone] [id number] STEVE OROZCO Self - patient is the insured MEDICAL (GENERAL) HISTORY Medical History History ICD Code colonoscopy 11-08-2010 diverticulosis polymyalgia rheumatica elevated cholesterol IBS Denies CT,DM,CVA,Lung disease,renal dise ase hypertension left knee Minicus Surgical History Surgery Date(Month/Year) cholecystectomy hysterectomy back fusion carpal tunnel release
[2024-06-19 13:12] LABS: MANUAL DIFF FLAG NO
[2024-06-19 13:25] LABS: Basophils Absolute Auto 0.1 X10*3/uL (0.0-0.2); Basophils Percent Auto 0.8 % (0-2); Eosinophils Absolute Auto 0.2 X10*3/uL (0.0-0.4); Eosinophils Percent Auto 3.1 % (0-4); Hemoglobin 12.3 g/dl (12.0-16.0); Imm Gran Abs Auto 0.02 X10*3/uL (0.00-0.03); Imm Gran Pct Auto 0.3 % (0.0-0.4); Lymphocytes Percent Auto 33.5 % (20-40); Mean Corpuscular HGB Conc 33.2 g/dl (31.0-35.0); Mean Corpuscular Hemoglobin 29.4 pg (27.0-33.0); Mean Corpuscular Volume 88.5 fL (80.0-98.0); Mean Platelet Volume 9.4 fL (9.4-12.3); Monocytes Absolute Auto 0.4 X10*3/uL (0.1-1.2); Monocytes Percent Auto 5.9 % (2-11); Neutrophils Absolute Auto 3.4 x10*3/uL (2.0-8.3); Neutrophils Percent Auto 56.4 % (45-73); Platelet Count 215 X10*3/uL (160-400); Red Blood Count 4.18 X10*6/uL (4.20-5.50); Red Cell Distribution Width 13.1 % (11.0-16.0); White Blood Count 6.1 X10*3/uL (4.8-10.8)
[2024-06-19 13:47] LABS: Estimated Average Glucose 114 mg/dL; Hemoglobin A1C 122.1639 umol/L; Hemoglobin A1c % 5.6 % (<6.0); Total Hemoglobin (HGBA1C) 3276.3817 umol/L
[2024-06-19 13:58] LABS: Alanine Aminotransferase 21 U/L (0-31); Albumin Level 4.2 g/dL (3.5-5.0); Alkaline Phosphatase 76 U/L (39-117); Anion Gap 12 (12-20); Aspartate Amino Transferase 22 U/L (5-31); Bilirubin Total 1.2 mg/dL (0.0-1.0); Blood Urea Nitrogen 13 mg/dL (9-16); Calcium 9.5 mg/dL (8.4-10.2); Carbon Dioxide 24 mmol/L (22-29); Chloride 107 mmol/L (96-108); Cholesterol 206 mg/dL (<200); Estimated Glomerular Filt Rate > 60; Glucose Fasting 106 mg/dL (60-99); HDL Cholesterol 86 mg/dL (>40); LDL Cholesterol Calculated 100 mg/dL (<100); Potassium 4.3 mmol/L (3.3-5.1); Sodium 139 mmol/L (135-145); Total Protein 6.6 g/dL (6.5-8.0); Triglycerides 104 mg/dL (<150)
[2024-06-19 14:00] LABS: Vitamin D 25-OH Total 41.1 ng/mL (>30)
== END 2024-06-19 09:25 | disposition home or self-care (01) ==
LOC: HO.HMGCLDS 09:24
PROVIDERS: PCP Internal Medicine; Visit Provider Internal Medicine
DX: I10 Essential (primary) hypertension (principal); E78.5 Hyperlipidemia, unspecified; R73.9 Hyperglycemia, unspecified; E55.9 Vitamin D deficiency, unspecified
CPT/HCPCS: 36415; 80053; 80061; 82306; 83036; 85025

== ENCOUNTER 2024-06-25 08:23 | Outpatient (AMB) | payer MEDICARE, SELFPAY ==
[2024-06-25 08:25] VITALS: BP 112/70; PULSE 62; RESP 16; TEMP 36.7; O2SAT 96; BMI 24.6
--- NOTE | 2024-06-25 08:25 | MHC.PC.OV ---
Vital Signs 06/25/24 08:25 Height 5 ft 7 in Weight 157 lb BMI 24.6 BP 112/70 Blood Pressure Location Rt brachial Position Sitting Respiration 16 Pulse 62 Pulse Source Pulse Oximeter Temp 98.1 F Temp Source Oral Pulse Oximetry (%) 96 Oxygen Delivery Method Room Air Intake Visit Reasons: Annual PE Intake Note: Pt is here today for her PE Allergies atorvastatin [Lipitor] Allergy (Intermediate, Verified 06/25/24 08:26) myalgia celecoxib [From CELEBREX] Allergy (Intermediate, Verified 06/25/24 08:26) ITCHING, RASH rosuvastatin [Crestor] Allergy (Intermediate, Verified 06/25/24 08:26) myalagia codeine [Codeine] Allergy (Mild, Verified 06/25/24 08:26) ITCHING, itchy morphine [Morphine] Allergy (Mild, Verified 06/25/24 08:26) ITCHING, itchy meperidine [Demerol] Allergy (Unknown, Verified 06/25/24 08:26) unknown cephalexin Adverse Reaction (Mild, Verified 06/25/24 08:26) Itching Medication List - Last Reconciled 06/25/24 by Charu Santos MD amlodipine 5 mg PO DAILY aspirin 81 mg PO DAILY citalopram 10 mg PO DAILY coenzyme Q10 (CoQ-10) 200 mg PO DAILY gabapentin 600 mg (2 x 300 mg) PO DAILY [probiotic PO] rosuvastatin 5 mg PO Q OTHER DAY valsartan 160 mg PO DAILY Tobacco use date assessed: 06/25/24 Fall risk assessment: No Falls in past year Last assessed Fall Risk: 06/25/24 Dental Screening Dental Screen Date: 06/25/24 Did you have a dental visit in the last 12 months?: Yes Did you have a dental problem in the last 6 months where you did not have access to dental care?: No Was dental information given to patient?: Patient has dentist [facility] Medical History Hyperglycemia Postmenopausal Annual physical exam HTN (hypertension) Medial meniscus tear Anxiety Osteoarthritis Osteopenia History of mammogram IBS (irritable bowel syndrome) Hyperlipidemia PMR (polymyalgia rheumatica) Surgical History History of total left knee replacement Hx of cholecystectomy History of carpal tunnel release Hx of hysterectomy S/P lumbar spinal fusion H/O colonoscopy Family History Father Cancer of prostate Mother CAD (coronary artery disease) CHF (congestive heart failure) Hx of CABG Mental health disorder Social History Housing: House Alcohol intake: current Alcohol intake frequency: holidays/special occasions only Patient Tobacco Use Status: Never used Tobacco e-Cigarette/Vaping Use: Never Used Current occupational status: retired Cognitive needs: No Hearing needs: No Vision needs: Yes Questionnaire PHQ-9 Over the last 2 weeks, how often have you been bothered by any of the following problems? 1. Little interest or pleasure in doing things: not at all 2. Feeling down, depressed, or hopeless: not at all 3. Trouble falling or staying asleep, or sleeping too much: not at all 4. Feeling tired or having little energy: not at all 5. Poor appetite or overeating: not at all 6. Feeling bad about yourself - or that you are a failure or have let yourself or your family down: not at all 7. Trouble concentrating on things, such as reading the newspaper or watching television: not at all 8. Moving or speaking so slowly that other people could have noticed. Or the opposite - being so fidgety or restless that you have been moving around a lot more than usual: not at all 9. Thoughts that you would be better off or of hurting yourself in some way: not at all Total score: 0 Depression Screening Interpretation: Negative Depression Screening Done: Yes 06847 - PHQ-9 Billing: Yes Source: Developed by Drs. Jan Phan, Corrine Vinson, Conner Huddleston and colleagues, with an educational candido from [employer]. Thrive Questionnaire Date Thrive assessed: 06/25/24 I am a: Patient What is your living situation today?: I have a steady place to live Within the past 12 months, did the food you bought not last and you didn't have the money to get more?: Never true Within the past 12 months, did you worry whether your food would run out before you got money to buy more?: Never true Do you have trouble paying for medicines?: No Do you have trouble getting transportation to medical appointments?: No Do you have trouble paying your heating and electricity bill?: No Do you have trouble taking care of your child, family member or friend?: No Do you have trouble with day-to-day activities such as bathing, preparing meals, shopping, managing finances, etc.?: No Are you currently unemployed and looking for a job?: No Are you interested in more education?: No Please select the resources that you would like help with: None Currently or been in a relationship where the following occur: No concerns reported THRIVE Score: 0 AUDIT C Alcohol Use Questionnaire (AUDIT-C) 1. How often do you have a drink containing alcohol?: 2-4 times a month 2. How many drinks containing alcohol do you have on a typical day when you are drinking?: 1 or 2 3. How often do you have six or more drinks on one occasion?: Never Total Score: 2 Score Reviewed/Action Taken: Yes RODRIGUE-7 AMB Questionnaire RODRIGUE-7 Date RODRIGUE - 7 assessed: 06/25/24 Feeling nervous, anxious, or on edge: 0 = Not at all Not being able to stop or control worryin = Not at all Worrying too much about different things: 0 = Not at all Trouble relaxin = Not at all Being so restless that it is hard to sit still: 0 = Not at all Becoming easily annoyed or irritable: 0 = Not at all Feeling afraid as if something awful might happen: 0 = Not at all Total RODRIGUE-7 score (0-4 normal; 5-9 mild; 10-14 moderate; 15-21 severe): 0 Source: Developed by Drs. Jan Phan, Corrine Vinson, Conner Huddleston and colleagues, with an educational candido from [employer]. RODRIGUE-7 Assessment Billing RODRIGUE-7 Assessment Tool: RODRIUGE-7 Assessment 06543 Review of Systems Const All systems reviewed & are unremarkable except as noted in HPI and below Eyes Reports no additional complaints ENT Reports no additional complaints Card Reports no additional complaints Resp Reports no additional complaints GI Reports no additional complaints Reports no additional complaints Musc Reports no additional complaints Physical exam (Primary Care) Vital Signs: Last Vital Signs Temp 98.1 F 06/25/24 08:25 Pulse 62 06/25/24 08:25 Resp 16 06/25/24 08:25 BP 112/70 06/25/24 08:25 Pulse Ox 96 06/25/24 08:25 Oxygen Delivery Method Room Air 06/25/24 08:25 BMI result Body Mass Index 24.6 Tobacco/Smoking Status: Tobacco use Status Tobacco use date assessed 06/25/24 06/25/24 08:26 Patient Tobacco Use Status Never used Tobacco 06/25/24 08:26 e-Cigarette/Vaping Use Never Used 06/25/24 08:26 PHQ-9: PHQ-9 Score PHQ-9: Total score 0 06/25/24 08:36 Depression Screening Interpretation: Negative Thrive Assessment: Date of Thrive Assessment Date Thrive assessed 06/25/24 06/25/24 08:26 Currently or been in a relationship where the following occur: No concerns reported Const General: no acute distress Eyes General: appearance normal, both eyes and all related structures Neck Neck: Yes no lymphadenopathy and Yes supple Resp Effort & Inspection: normal respiratory effort Auscultation: clear to auscultation bilaterally Cardio Rhythm: regular rhythm Heart sounds: S1 normal heart sound present and S2 normal heart sound present GI Inspection: Yes normal to inspection Palpation (GI): Soft to palpation Percussion: Yes normal to percussion Auscultation: normal bowel sounds Coding Level of Care Code Est Pt Prev Care >65y(39133) Diagnoses Bacteriuria R82.71 Annual physical exam Z00.00 Essential hypertension I10 Hypertension type: essential hypertension Hyperlipidemia E78.5 Hyperglycemia R73.9 Additional Codes RODRIGUE-7 Assessment Billing - RODRIGUE-7 Assessment Tool: RODRIGUE-7 Assessment 42768 ([id number]) PHQ-9 - 62573 - PHQ-9 Billing: Yes ([id number]) Assessment & Plan Assessment & Plan (1) Bacteriuria: Code(s): R82.71 - Bacteriuria Category: Medical Plan: For symptoms of increase urination occasionally burning month but not full blown UTI symptoms UA and urine culture will be obtained. (2) Annual physical exam: Code(s): Z00.00 - Encounter for general adult medical examination without abnormal findings Category: Medical Plan: Well-balanced diet regular physical activity discussed with the patient. She is up-to-date with mammogram (3) Hypertension: Code(s): I10 - Essential (primary) hypertension Category: Medical Qualifiers: Hypertension type: essential hypertension Qualified Code(s): I10 - Essential (primary) hypertension Plan: Continue current medications (4) Hyperlipidemia: Code(s): E78.5 - Hyperlipidemia, unspecified Category: Medical Plan: Continue statin (5) Hyperglycemia: Code(s): R73.9 - Hyperglycemia, unspecified Category: Medical Plan: A1c is 5.6, ADA diet regular exercise discussed with the patient physical in 1 year Orders: Orders Urine Culture Today R82.71 - Bacteriuria Lipid Panel 1 Year E78.5 - Hyperlipidemia, unspecified, I10 - Essential (primary) hypertension, R73.9 - Hyperglycemia, unspecified, Z00.00 - Encounter for general adult medical examination without abnormal findings Complete Blood Count Auto Diff 1 Year E78.5 - Hyperlipidemia, unspecified, I10 - Essential (primary) hypertension, R73.9 - Hyperglycemia, unspecified, Z00.00 - Encounter for general adult medical examination without abnormal findings UA w Microscopic Today R82.71 - Bacteriuria, Z00.00 - Encounter for general adult medical examination without abnormal findings Comprehensive [place]. Panel Fast 1 Year E78.5 - Hyperlipidemia, unspecified, I10 - Essential (primary) hypertension, R73.9 - Hyperglycemia, unspecified, Z00.00 - Encounter for general adult medical examination without abnormal findings Hemoglobin A1c 1 Year E78.5 - Hyperlipidemia, unspecified, I10 - Essential (primary) hypertension, R73.9 - Hyperglycemia, unspecified, Z00.00 - Encounter for general adult medical examination without abnormal findings TSH reflex Free T4 1 Year E78.5 - Hyperlipidemia, unspecified, I10 - Essential (primary) hypertension, R73.9 - Hyperglycemia, unspecified, Z00.00 - Encounter for general adult medical examination without abnormal findings Medications: New dicyclomine 10 mg PO TID 90 caps 1RF Refilled amlodipine 5 mg PO DAILY 90 tabs 3RF valsartan 160 mg PO DAILY 90 tabs 3RF rosuvastatin 5 mg PO Q OTHER DAY 45 tabs 3RF
--- OUTSIDE RECORDS SUMMARY | 2024-06-25 08:47 | XMS_ITS | Patient Health Record ---
Author Organization [facility] Address [address] [place] [address] Care Team Providers Care Swage Tender Name Role Phone Charu Santos MD Primary Care Provider Jose Quintero Jr Unavailable [phone] ALLERGIES Allergen (clinical drug ingredient) Drug/Non Drug [...] Problem Colon cancer screening (Z12.11) Active confirmed 845016614 Problem Epigastric pain (R10.13) Active confirmed 72324316 Problem Irritable bowel syndrome with diarrhea (K58.0) Active confirmed 503177857 Problem Elevated LFTs (R79.89) Active confirmed 818884076 PLAN OF TREATMENT Pending Test Test Name [...] Insured Coverage Start Date Coverage End Date [facility] [address] [place] [phone] [id number] STEVE OROZCO Self - patient is the insured MEDICAL (GENERAL) HISTORY Medical History History ICD Code colonoscopy 11-08-2010 diverticulosis polymyalgia rheumatica elevated cholesterol IBS Denies [place],DM,CVA,Lung disease,renal dise ase hypertension left knee Minicus Surgical History Surgery Date(Month/Year) cholecystectomy hysterectomy back fusion carpal tunnel release
--- OUTSIDE RECORDS SUMMARY | 2024-06-25 08:47 | XMS_ITS | Data Portability ---
Author Organization PAUL - Joshua Lutz [facility], [facility] Address [address] [place] [address] Assessment Encounter Date Assessment Date Assessment LastModified [...] [facility], [address], [place], [address], 10:04:54 Medication Orders sulindac 150 mg tablet [address] [facility] [address], [address] [place], [address], 4 12:38:08 sulindac 150 mg tablet [address] [facility] [address], [address] [place], [address], 4 12:38:08 Patient TargetsNo targets recorded. Patient InstructionsNo instructions recorded. Reason for Referral None Reported. Results Created Date Observation Date Name Description Value Unit Range Abnormal Flag Note LastModifiedBy Organization Detail LastModifiedTime 10/12/19 24 10/10/2023 CT, lumba r spine , w/o contr ast No observ ation record ed. [facility] [address] [address], [place], [address], 10/29/2023 16:07:02 01/04/20 24 12/18/2018 imagi ng/di [...] Recorded Time History of major orthopedic surgery 222852111 Active 2021 Status: 'A'; Not Available [facility] 4 10:57:14 Tear of medial meniscus of knee 737134670 Active 2018 Problem Code: S83.232D ; Problem Code Type: ICD-10; Status: 'A'; Not Available [facility] 4 10:57:14 Low back pain 029495417 Active 2023 BRISSA carlton, [facility] 4 17:02:21 Problem Notes None recorded. Procedures Surgical History Date Name Laterality Status Provider Name and Address Organization Details Recorded Time 5 [facility] Hand Inj completed Gallo Rene MD [address], [place], [address], [facility] 06/05/2024 07:51:03 4 [facility] Wrist Tendon Inj completed Gallo Rene MD [address], [place], [address], [facility] 01/24/2024 11:29:26 Imaging Results Imaging Date Name Status LastModified by Organiz ation Details LastModified Time 10/10/2023 CT, lumbar spine, w/o contrast completed JOE [facility] [address] [facility] [address], [place], [address], 10/29/2023 16:07:02 12/18/2018 imaging/diagn ostic result completed [...] Name and Address Organization Details Recorded Time 89412 codeine medicatio n Not available Not available Not available 07/08/20232016 2670 RxNorm Aller gyRea ction : 'Skin React ion'; Not Available [facility] 4 11:09:49 42892 Demerol medicatio n Not available Not available Not available 07/08/20232016 84070 1 RxNorm Aller gyRea ction : 'Skin React ion'; Not Available [facility] 4 11:09:49 19633 Celebrex medicatio n Not available Not available Not available 07/08/20232016 43701 7 RxNorm Aller gyRea ction : 'Skin React ion'; Not Available [facility] 4 11:09:50 55821 morphine sulfate medicatio n Not available Not available Not available 07/08/20232018 49685 RxNorm Not Available [facility] 4 11:09:50 Medications Name Sig Start Date [...] Updated DateTime 09/11/2023 167.64 cm 25 kg/m2 60489.82 g RUBY FERRELL [facility] 09/11/2023 12:08:44 Date Recorded Body height Body mass index (BMI) Body weight Provider Name and Address Organization Details Last Updated DateTime 10/18/2023 167.64 cm 25 kg/m2 80755.82 g SHAREE ACOSTA [facility] 10/18/2023 14:40:02 Date Recorded Body height Body mass index (BMI) Body weight Provider Name and Address Organization Details Last Updated DateTime 01/24/2024 167.64 cm 25 kg/m2 86950.82 g TRINIDAD LANDRY [facility] 01/24/2024 09:29:41 Date Recorded Body height Body mass index (BMI) Body weight Provider Name and Address Organization Details Last Updated DateTime 06/03/2024 167.64 cm 25 kg/m2 48405.82 g TRINIDAD LANDRY [facility] [...] SNOMED-CT Code Diagnosis ICD10 Code Diagnosis Note [id number] Jan Warren MD [place] [address] [place] [address] 09/11/2023 10:02:22 10/04/2023 10:04:54 Low back pain 450007753 M54.50 [id number] Jan Warren MD [place] [address] [place] [address] 10/18/2023 14:22:19 11/21/2023 16:54:09 Low back pain 516901758 M54.50 [id number] MD [facility] [place] [address] [place] [address] 01/24/2024 09:10:14 02/14/2024 15:44:06 Tenosynovitis of left radial styloid 1726429168 2693920 M65.4 [id number] Gallo Rene MD [facility] [address] [place] [address] 06/03/2024 09:24:39 06/23/2024 09:55:18 Arthritis of first carpometacarpal joint of right hand 5744385862 387262 M18.11 Health Concerns Section Related Observation LastModified by Organization Detai ls LastModified Time None Recorded Concern Status LastModified by Organization Details LastModified Time None Recorded Advance Directives Directive None Recorded Payers Encounter Date Sequence Insurance Name Policy Number Policy Forte Covered Member ID Forte Member ID Guarantor Name 09/11/2023 1 [facility] [id number] Luzma Mattson [id number] Luzma Torres Mattson 10/18/2023 1 [facility] [id number] Luzma Mattson [id number] Luzma Torres Srinivasan 01/24/2024 1 [facility] [id number] Luzma Mattson [id number] Luzma Torres Srinivasan 06/03/2024 1 [facility] [id number] Luzma Mattson [id number] Luzma Torres Mattson Notes Date Note Type [...] fusion L4 to the sacrum did well. wound care technician not helpful MEDICATIONS: Aleve WORK STATUS: Retired IMAGING: None X-RAY REPORT: X-rays ordered, obtained and reviewed at [facility]. AP and lateral lumbar spine films obtained in the office today notable for solid fusion extending from your L4 to the sacrum. Advanced degenerative findings with listhesis at L3-4 and L2-3 Jan Warren MD [address] [place] [address] [address], [place], [address], [facility] 09/11/2023 12:29:15 10/18/2023 text/html [...] syndrome. PHYSICAL EXAMINATION: Jan Warren MD [address], [place], [address], [facility] [...] in 1 month. Gallo Rene MD [address], [place], [address], [facility] [...] tolerated her injection well. Gallo Rene MD [address] [place] [address] [address], [place], [address], [facility] 06/05/2024 07:51:29 OBGyn Episode No OBEpisode recorded.
== END 2024-06-25 09:49 | disposition home or self-care (01) ==
PROVIDERS: PCP Internal Medicine; Visit Provider Internal Medicine
DX: R82.71 Bacteriuria (principal); Z00.00 Encounter for general adult medical examination without abnormal findings; I10 Essential (primary) hypertension; E78.5 Hyperlipidemia, unspecified; R73.9 Hyperglycemia, unspecified

== ENCOUNTER 2024-06-25 08:23 | Outpatient (REF) | payer MEDICARE, SELFPAY ==
[2024-06-25 10:16] LABS: Appearance Urine Cloudy; Color Urine Yellow; Glucose Urine UA Negative (Negative); Leukocyte Esterase Urine Small (1+) (Negative); Nitrite Urine Positive (Negative); PH 5.5 (5.0-9.0); Specific Gravity - Urine >= 1.030 (1.005-1.025); UMIC TRIGGER UA YES; Urine Blood Negative (Negative); Urine Ketones Negative (Negative); Urine Protein Trace mg/dL (Neg-Trace)
[2024-06-25 10:22] LABS: Bacteria Urine 4+ (None Seen); Hyaline Casts Urine 0-2 /LPF (0-2); RBC Urine 0-2 /HPF (0-2); WBC Urine 21-50 /HPF (0-5)
== END 2024-06-25 08:24 | disposition home or self-care (01) ==
LOC: HO.HMGCLDS 08:23
PROVIDERS: PCP Internal Medicine; Visit Provider Internal Medicine
DX: Z00.00 Encounter for general adult medical examination without abnormal findings (principal); R82.71 Bacteriuria; I10 Essential (primary) hypertension; E78.5 Hyperlipidemia, unspecified; R73.9 Hyperglycemia, unspecified; Z79.899 Other long term (current) drug therapy
CPT/HCPCS: 81001; 87086; 87088; 87186; 96127; 99397

== ENCOUNTER 2024-12-18 10:30 | Outpatient (REF) | payer MEDICARE, SELFPAY ==
--- OUTSIDE RECORDS SUMMARY | 2024-12-18 10:35 | XMS_ITS | Patient Health Record ---
Author Organization [facility] Address [address] [place] [address] Care Team Providers Care Soccer Ball Assembler Name Role Phone Charu Santos MD Primary Care Provider Jose Quintero Jr Allergies Allergen (clinical drug ingredient) Drug/Non Drug Allergy documented on EMR Reaction Allergy Type Onset Date Status morphine Morphine Sulfate Unknown Drug Allergy Active meperidine Demerol Unknown Drug Allergy Active Codeine Phosphate Unknown Drug Allergy Active celecoxib Celebrex Unknown Drug Allergy Active Reason For Referral No Information Medications Medication SIG (Take, Route, Frequency, Duration) Notes Start Date End Date Status Citalopram Hydrobromide 5 1 tablet Orally hs Active Valerian Root 2 capsule before bedtime as needed HS Not-Taking Vitamin B12 100 MCG as directed Orally Not-Taking Crestor 5 MG 1 tablet Orally HS 3 TIMES A WEEK Active NexIUM 40 MG 1 capsule Orally Onc e a day for 30 days 11/15/2020 Not-Taking amLODIPine Besylate 5 MG 1 tablet Orally Once a day Active MiraLax (colon prep) 8.3 ounce ((238) grams mixed with Gatorade or Crystal Light orally begin at 5:00 p.m. the day before the procedure for 1 day 08/17/2020 Not-Taking Niacin CR Active Melatonin ER 10 MG as directed Orally HS Active Readi-Cat 2 2.1 % as directed Orally 11/17/2020 Not-Taking Valsartan 160 MG 1 tablet Orally Once a day Active Dicyclomine HCl 20 MG 1 tablet Orally 2- 4 times a day 11/30/2021 Active Dicyclomine HCl 20 MG Orally PRN Active CoQ-10 100 MG 2 capsule with a misha l Orally Once a day Active Diovan 160 MG 1 tablet Orally Once a day Not-Taking Probiotic - as directed Orally o nce a day Active Aspirin 81 MG 1 tablet Orally Once a day Not-Taking immodium Active Gabapentin 300 MG 1 tablet Orally Once a day Active Furosemide 20 mg 1 tab Oral am Not-Taking Immunizations Vaccine Route Administration Date Status Comme nts Influenza Unknown 03/18/2018 Administered Influenza Unknown 02/17/2020 Administered Social History Tobacco Use: Social History Observation Description Date Details (start date - stop date) Never Smoker NA - NA Tobacco Control (Standard) Question Answer Notes Tobacco use: Nonsmoker AUDIT-C (Standard) Question Answer Notes Did you have a drink contain ing alcohol in the past year? Yes How often did you have a dri nk containing alcohol in the past year? Daily or almost daily (4 points) How many drinks did you have on a typical day when you were drinking in the past year? 1 or 2 drinks (0 point) How often did you have six o r more drinks on one occasion in the past year? Never (0 point) Points 4 Interpretation Positive Problems Problem Type SNOMED Code ICD Code Onset Dates Problem Status W/U Status Risk Notes Problem 833059879 Colon cancer screening (Z12.11) Active confirmed Problem 40067480 Epigastric pain (R10.13) Active confirmed Problem 402848404 Irritable bowel syndrome with diarrhea (K58.0) Active confirmed Problem 054545456 Elevated LFTs (R79.89) Active confirmed Vital Signs Heart Rate 60 /min 12/18/2024 Temperature 97.7 degrees Fahrenheit 12/18/2024 Blood pressure diastolic 01 mm Hg 12/18/2024 Height 65.25 in 12/18/2024 Blood pressure systolic 001 mm Hg 12/18/2024 Weight 161.8 lbs 12/18/2024 BMI 26.72 kg/m2 12/18/2024 Encounters Encounter Location Date Provider Diagnosis [facility] [address] [place] [address] 12/18/2024 Jose Gallagher Jr Irritable bowel syndrome with diarrhea K58.0 and Epigastric pain R10.13 Assessments Encounter Date Diagnosis (ICD Code) Assessment Notes Treatment Notes Treatment Clinical Notes Section Notes 12/18/2024 Irritable bowel syndrome with diarrhea (ICD-10 - K58.0) 12/18/2024 Epigastric pain (ICD-10 - R10.13) Plan Of Treatment Pending Test Test Name Order Date BUN 11/15/2020 CREATININE 11/15/2020 LIVER PROFILE 12/18/2024 LIVER PROFILE 03/08/2022 LIVER PROFILE 11/15/2020 LIPASE 12/18/2024 LIPASE 11/15/2020 CBC w/o DIFF 03/08/2022 CBC w/o DIFF 12/18/2024 CBC w/o DIFF 11/15/2020 CT ABD & PELVIS WITH CONTRAST 11/15/2020 CT ABD & PELVIS WITH PO CONT ONLY 2013 Future Test Test Name Order Date COLONOSCOPY 08/17/2020 Next Appt Details Provider Name:Jose ross , 12/23/2025 02:55:00 PM, [address], [address], [place], [address], Insurance Providers Payer Name Payer Address Payer Phone Subscriber Number Group Number Insured Name Patient Relationship to Insured Coverage Start Date Coverage End Date [facility] [address] [place] [address] [id number] STEVE OROZCO Self - patient is the insured 4 Medical (General) History Medical History History ICD Code colonoscopy 11-08-2010 diverticulosis elevated cholesterol IBS Denies [place],DM,CVA,Lung disease,renal dise ase hypertension left knee [facility]icus Surgical History Surgery Date(Month/Year) left knee surgery 2022 carpal tunnel release back fusion hysterectomy cholecystectomy
[2024-12-18 13:15] LABS: MANUAL DIFF FLAG NO
[2024-12-18 13:18] LABS: Hematocrit 38.0 % (37.0-47.0); Hemoglobin 12.4 g/dl (12.0-16.0); Imm Gran Abs Auto 0.01 X10*3/uL (0.00-0.03); Imm Gran Pct Auto 0.2 % (0.0-0.4); Lymphocytes Absolute Auto 2.2 X10*3/uL (1.2-4.9); Mean Corpuscular HGB Conc 32.6 g/dl (31.0-35.0); Mean Corpuscular Hemoglobin 29.8 pg (27.0-33.0); Mean Corpuscular Volume 91.3 fL (80.0-98.0); NRBC Abs Auto 0.000 X10*3/uL (0.0-0.012); NRBC Pct Auto 0.0 /100WBC (0.0-0.2); Platelet Count 220 X10*3/uL (160-400); Red Blood Count 4.16 X10*6/uL (4.20-5.50); White Blood Count 6.1 X10*3/uL (4.8-10.8)
[2024-12-18 13:36] LABS: Alanine Aminotransferase 32 U/L (0-31); Albumin Level 4.6 g/dL (3.5-5.0); Alkaline Phosphatase 80 U/L (39-117); Aspartate Amino Transferase 27 U/L (5-31); Lipase 23 U/L (8-78); Total Protein 6.6 g/dL (6.5-8.0)
== END 2024-12-18 10:31 | disposition home or self-care (01) ==
LOC: HO.10HDL 10:30
PROVIDERS: Visit Provider Internal Medicine Gastroenterology
DX: K50.80 Crohn's disease of both small and large intestine without complications (principal); R10.13 Epigastric pain
CPT/HCPCS: 36415; 80076; 83690; 85025